=== PATIENT | female | born 1930 | race Caucasian/White ===

== ENCOUNTER 2019-06-04 16:18 | Inpatient (IN) | payer MEDICARE ==
[2019-06-04] MEDS ORDERED: NORMAL SALINE 500 ML IV ONE (16:40)
[2019-06-04 17:09] LABS: ALBUMIN 2.9 g/dL (3.5-5.0); ALKALINE PHOSPHATASE 161 U/L (38-126); ASPARTATE AMINO TRANSFERASE 33 U/L (14-36); BILIRUBIN,DIRECT 0.3 mg/dL (0.0-0.4); BILIRUBIN,TOTAL 0.6 mg/dL (0.2-1.3); BLOOD UREA NITROGEN 42 mg/dL (7-20); CALCIUM 8.9 mg/dL (8.4-10.2); CHLORIDE 93 mmol/L (98-107); GLUCOSE 109 mg/dL (75-110); TOTAL PROTEIN 5.8 g/dL (6.3-8.2)
[2019-06-04 17:10] LABS: HEMATOCRIT 41.7 % (36.0-47.0); HEMOGLOBIN 14.3 g/dL (12.0-15.5); MEAN CORPUSCULAR HEMOGLOBIN 30.9 pg (27.0-33.4); MEAN CORPUSCULAR HGB CONC 34.3 g/dL (32.0-36.0); MEAN CORPUSCULAR VOLUME 90 fl (80-97); PLATELET COUNT 269 10^3/uL (150-450); RED BLOOD COUNT 4.62 10^6/uL (3.72-5.28); RED CELL DISTRIBUTION WIDTH 14.3 % (11.5-14.0); WHITE BLOOD COUNT 11.8 10^3/uL (4.0-10.5)
[2019-06-04 17:14] LABS: INTERNATIONAL RATION (INR) 1.05; PROTHROMBIN TIME 13.8 SEC (11.4-15.4)
[2019-06-04 17:15] LABS: ANION GAP 10 (5-19); CARBON DIOXIDE 39 mmol/L (22-30)
[2019-06-04 17:17] LABS: POTASSIUM 2.8 mmol/L (3.6-5.0)
[2019-06-04 17:25] LABS: VENOUS BLOOD BASE EXCESS 13.4 mmol/L; VENOUS BLOOD HCO3 41.2 mmol/L (20-32); VENOUS BLOOD PCO2 64.4 mmHg (35-63); VENOUS BLOOD PH 7.42 (7.30-7.42)
[2019-06-04 17:30] LABS: ABSOLUTE LYMPHOCYTES# (MANUAL) 0.7 10^3/uL (0.5-4.7); ABSOLUTE MONOCYTES # (MANUAL) 0.7 10^3/uL (0.1-1.4); BASOPHILS % (MANUAL) 0 % (0-2); EOSINOPHILS % (MANUAL) 0 % (0-6); LYMPHOCYTES % (MANUAL) 6 % (13-45); MONOCYTES % (MANUAL) 6 % (3-13); SEGMENTED NEUTROPHILS % (MAN) 88 % (42-78); TOTAL CELLS COUNTED 100
[2019-06-04 17:33] LABS: ANISOCYTOSIS SLIGHT; OVALOCYTES SLIGHT; PLATELET CLUMPS PRESENT; PLATELET COMMENT ADEQUATE; POIKILOCYTOSIS SLIGHT
--- NOTE | 2019-06-04 17:48 | EKG REPORT ---
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 ANTEROSEPTAL INFARCT, OLD : Confirmed by: Rahul Mcgill MD 04-Jun-2019 17:47:55
--- NOTE | 2019-06-04 18:10 | RADIOLOGY REPORT (SQ) ---
EXAM DESCRIPTION: CHEST SINGLE VIEW COMPLETED DATE/TIME: 06/04/2019 5:36 pm REASON FOR STUDY: dyspnea COMPARISON: 05/17/2008 EXAM PARAMETERS: NUMBER OF VIEWS: One view. TECHNIQUE: Single frontal radiographic view of the chest acquired. RADIATION DOSE: NA LIMITATIONS: Lordotic examination. FINDINGS: LUNGS AND PLEURA: Probable small bilateral pleural effusions and associated bibasilar atel ectasis or consolidation. MEDIASTINUM AND HILAR STRUCTURES: No masses. Contour normal. HEART AND VASCULAR STRUCTURES: Heart normal in size. Normal vasculature. BONES: No acute findings. Severe bilateral glenohumeral arthrosis. HARDWARE: None in the chest. OTHER: No other significant finding. IMPRESSION: Lordotic AP portable examination. There are probable small bilateral pleural effusions and associated bibasilar atelectasis or consolidation. TECHNICAL DOCUMENTATION: JOB ID: [id number] [employer]- All Rights Reserved Reading location - IP/workstation name: [email or web address]
--- NOTE | 2019-06-04 18:19 | ER Document Report ---
Entered by ERIC ELDER SCRIBE 06/04/19 1855 Acting as scribe for:VASILE ATKINS IV, MD ED Respiratory Problem - General Information source: Patient, Relative Cannot obtain history due to: Other TRAVEL OUTSIDE OF THE [place] IN LAST 30 DAYS: No - Related Data Home Medications: unobtainable at this time <VASILE ATKINS IV - Last Filed: 06/04/19 19:46> <CESAR MERCER - Last Filed: 06/05/19 03:16> - General Chief Complaint: Breathing Difficulty Stated Complaint: DIFFICULTY BREATHING Time Seen by Provider: 06/04/19 16:31 Primary Care Provider: ELOY CORBIN MD [Primary Care Provider] - Follow up as needed Notes: This 88 year old female patient presents to the emergency department today with complaints of shortness of breath for the last few days. Patient was seen by her primary care doctor 2 days ago for shortness of breath and was told she had "fluid in one lung but not the other". Patient was also started on amoxicillin at that time for "maybe pneumonia" according to family. EMS reports when they arrived on scene the patient had a room air oxygen saturation between 80-82% which mary lou to the high 90s on 4L via nasal cannula. (VASILE ATKINS IV) - Related Data Allergies/Adverse Reactions: No Known Allergies Allergy (Verified 06/05/19 01:37) Past Medical History - General Information source: Patient Cannot obtain history due to: Other - poor historian - Social History Smoking Status: Never Smoker Cigarette use (# per day): No Frequency of alcohol use: None Drug Abuse: None Lives with: Family Family History: Reviewed & Not Pertinent Patient has suicidal ideation: No Patient has homicidal ideation: No <VASILE ATKINS IV - Last Filed: 06/04/19 19:46> Review of Systems - Review of Systems Constitutional: No symptoms reported EENT: No symptoms reported Cardiovascular: No symptoms reported Respiratory: See HPI, Short of breath Gastrointestinal: No symptoms reported Genitourinary: No symptoms reported Female Genitourinary: No symptoms reported Musculoskeletal: No symptoms reported Skin: No symptoms reported Hematologic/Lymphatic: No symptoms reported Neurological/Psychological: No symptoms reported -: Yes All other systems reviewed and negative <VASILE ATKINS IV - Last Filed: 06/04/19 19:46> Physical Exam <VASILE ATKINS IV - Last Filed: 06/04/19 19:46> - Vital signs Vitals: Temp Resp BP Pulse Ox 97.7 F 27 H 171/98 H 98 06/04/19 16:31 06/04/19 16:31 06/04/19 16:31 06/04/19 16:31 - Notes Notes: Physical Exam: General: Alert, appears in mild respiratory distress. HEENT: Normocephalic. Atraumatic. PERRL. Extraocular movements intact. Oropharynx clear. Neck: Supple. Non-tender. Respiratory: Mild respiratory distress, increased work of breathing although lungs do seem to be clear bilaterally. Cardiovascular: Regular rate and rhythm. Abdominal: Normal Inspection. Non-tender. No distension. Normal Bowel Sounds. Back: No gross abnormalities. Extremities: Moves all four extremities. Upper extremities: Normal inspection. Normal ROM. Lower extremities: Normal inspection. No edema. Normal ROM. Neurological: Normal cognition. AAOx4. Normal speech. Psychological: Normal affect. Normal Mood. Skin: Warm. Dry. Normal color. (VASILE ATKINS IV) Course - Laboratory Result Diagrams: 06/04/19 15:43 06/04/19 15:43 - Transfer of Care Care transferred to following provider: DR. MERCER AT 2000 HOURS <VASILE ATKINS IV - Last Filed: 06/04/19 19:46> - Laboratory Result Diagrams: 06/04/19 15:43 06/04/19 15:43 <CESAR MERCER - Last Filed: 06/05/19 03:16> - Re-evaluation Re-evalutation: 06/05/19 03:13 The patient is hypoxic to the low 80s with ambulation. The patient's BNP is nearly 3000 and it is not clear if this is new or not. Will therefore admit for further work up and treatment of her hypoxia and presumed new onset CHF Patient's K was low and this was supped. 06/05/19 03:13 (CESAR MERCER) - Vital Signs Vital signs: Temp Pulse Resp BP Pulse Ox 97.5 F 83 27 H 146/80 H 96 06/04/19 21:55 06/04/19 21:55 06/05/19 01:01 06/05/19 01:00 06/05/19 01:01 - Laboratory Laboratory results interpreted by me: 06/04/19 06/04/19 06/04/19 15:43 15:43 16:45 WBC 11.8 H RDW 14.3 H Seg Neuts % (Manual) 88 H Lymphocytes % (Manual) 6 L Abs Neuts (Manual) 10.4 H Carbonic Acid ABG pCO2 ABG HCO3 ABG Total CO2 VBG pCO2 VBG HCO3 Potassium 2.8 L* Chloride 93 L Carbon Dioxide 39 H BUN 42 H Magnesium Alkaline Phosphatase 161 H Ammonia NT-Pro-B Natriuret Pep Total Protein 5.8 L Albumin 2.9 L Urine Protein >=500 H 06/04/19 06/04/19 06/04/19 17:05 22:07 22:07 WBC RDW Seg Neuts % (Manual) Lymphocytes % (Manual) Abs Neuts (Manual) Carbonic Acid ABG pCO2 ABG HCO3 ABG Total CO2 VBG pCO2 64.4 H VBG HCO3 41.2 H Potassium Chloride Carbon Dioxide BUN Magnesium Alkaline Phosphatase Ammonia 36.1 H NT-Pro-B Natriuret Pep 2950 H Total Protein Albumin Urine Protein 06/04/19 06/04/19 22:07 23:10 WBC RDW Seg Neuts % (Manual) Lymphocytes % (Manual) Abs Neuts (Manual) Carbonic Acid 1.77 H ABG pCO2 58.9 H ABG HCO3 40.1 H ABG Total CO2 41.9 H VBG pCO2 VBG HCO3 Potassium Chloride Carbon Dioxide BUN Magnesium 2.4 H Alkaline Phosphatase Ammonia NT-Pro-B Natriuret Pep Total Protein Albumin Urine Protein - EKG Interpretation by Me Additional EKG results interpreted by me: 06/04/19 19:49 EKG performed on 06/04/2019 at 1634 hrs. was interpreted by this MD. Findings: Normal sinus rhythm, rate 73, P waves preceding QRS complexes, QRS complexes appear narrow, there are no obvious patterns of ST elevation or depression suggestive of acute myocardial ischemia or infarction. (VASILE ATKINS IV) Discharge <VASILE ATKINS IV - Last Filed: 06/04/19 19:46> - Discharge Admitting Provider: Adonis (Hospitalist) Unit Admitted: Telemetry <CESAR MERCER - Last Filed: 06/05/19 03:16> - Discharge Clinical Impression: Hypokalemia, Hypoxemia Dyspnea Qualifiers: Dyspnea type: unspecified Qualified Code(s): R06.00 - Dyspnea, unspecified Heart failure Qualifiers: Heart failure type: unspecified Heart failure chronicity: unspecified Qualified Code(s): I50.9 - Heart failure, unspecified Condition: Fair Disposition: ADMITTED OBSERVATION Referrals: ELOY CORBIN MD [Primary Care Provider] - Follow up as needed I personally performed the services described in the documentation, reviewed and edited the documentation which was dictated to the scribe in my presence, and it accurately records my words and actions.
[2019-06-04 18:28] LABS: A TYPE INFLUENZA AG NEGATIVE (NEGATIVE); B INFLUENZA AG NEGATIVE (NEGATIVE)
[2019-06-04] MEDS ORDERED: POTASSIUM CHLORIDE 10 MEQ TABLET.ER PO ONE (18:46)
[2019-06-04 19:07] LABS: APPEARANCE,URINE SLIGHTLY-CLOUDY; BILIRUBIN,URINE NEGATIVE (NEGATIVE); COLOR,URINE YELLOW; GLUCOSE, URINE NEGATIVE (NEGATIVE); KETONES,URINE NEGATIVE (NEGATIVE); PROTEIN,URINE >=500 mg/dL (NEGATIVE); URINE SPECIFIC GRAVITY 1.028; UROBILINOGEN,URINE NEGATIVE mg/dL (<2.0)
[2019-06-04] MEDS ORDERED: POTASSI CL 20 MEQ/50 ML RIDER 20 MEQ/50 ML RTUPB IV ONE (19:46)
[2019-06-04 20:18] LABS: A TYPE INFLUENZA AG NEGATIVE (NEGATIVE); B INFLUENZA AG NEGATIVE (NEGATIVE)
--- NOTE | 2019-06-04 22:20 | RADIOLOGY REPORT (SQ) ---
CT angiogram chest with contrast on 06/04/2019 at 9:43 PM CLINICAL INDICATION: Shortness of breath TECHNIQUE: Multiple axial images are obtained throughout the chest following the administration of IV contrast. Computer generated 3D reconstructions/MIPS were performed. This exam was performed according to our departmental dose-optimization program, which includes automated exposure control, adjustment of the mA and/or kV according to patient size and/or use of iterative reconstruction technique. Total DLP is 610.99 mGy*cm. COMPARISON: None FINDINGS: There is no thoracic aortic aneurysm or dissection. Unfortunately bolus timing is significantly suboptimal for evaluation of pulmonary embolus. No definite evidence of a large or central pulmonary embolus is noted. Otherwise cannot exclude pulmonary emboli on this exam. There is no pleural or pericardial effusion. Limited visualized upper abdomen is unremarkable. There is no thoracic adenopathy. There is minimal bilateral dependent and basilar atelectasis. The lungs are otherwise clear. Degenerative changes are noted in the spine. IMPRESSION: 1. Unfortunately bolus timing significantly limits evaluation for pulmonary embolus. No evidence of a definite large or central pulmonary embolus is noted but otherwise cannot exclude pulmonary emboli on this exam. 2. Otherwise no acute abnormality.
--- NOTE | 2019-06-04 22:39 | RADIOLOGY REPORT (SQ) ---
EXAM DESCRIPTION: Noncontrast CT head CLINICAL HISTORY: 88 years Female AMS TECHNIQUE: Noncontrast CT head. All CT scans at this facility use dose modulation, iterative reconstruction, and/or weight based dosing when appropriate to reduce radiation dose to as low as reasonably achievable. COMPARISON: None. FINDINGS: Examination is technically limited by suboptimal patient positioning. There is questionable hypodensity versus artifact within the right frontal white matter. Pepper matter, white matter, ventricles, and cisterns are otherwise within normal limits. No acute hemorrhage or mass effect. Visualized portions of paranasal sinuses demonstrate mild scattered mucosal disease. The mastoids are clear. Visualized portions of the calvarium are within normal limits. IMPRESSION: 1. No acute intracranial hemorrhage. Questionable hypodensity versus artifact within the right frontal white matter. If there is clinical concern for acute stroke, consider MRI brain as a more sensitive evaluation.
[2019-06-04 23:17] LABS: ARTERIAL BLOOD BASE EXCESS 13.4 mmol/L; ARTERIAL BLOOD H2CO3 1.77 mmol/L (1.05-1.35); ARTERIAL BLOOD HCO3 40.1 mmol/L (20-24); ARTERIAL BLOOD O2 SATURATION 97.1 % (94-98); ARTERIAL BLOOD PCO2 58.9 mmHg (35-45); ARTERIAL BLOOD PH 7.45 (7.35-7.45); ARTERIAL BLOOD PO2 91.4 mmHg (80-100); ARTERIAL BLOOD TOTAL CO2 41.9 mmol/L (21-25)
[2019-06-04 23:18] LABS: ARTERIAL BLOOD FIO2 2L
--- NOTE | 2019-06-05 | RADIOLOGY REPORT (SQ) ---
CT head without contrast on 06/04/2019 11:34 PM CLINICAL INDICATION: Altered mental status TECHNIQUE: Multiple axial images are obtained throughout the head without the administration of contrast. This exam was performed according to our departmental dose-optimization program, which includes automated exposure control, adjustment of the mA and/or kV according to patient size and/or use of iterative reconstruction technique. Total DLP is 805.55 mGy*cm. COMPARISON: 06/04/2019 at 9:40 PM FINDINGS: There is generalized cerebral atrophy. There is low density in the periventricular white matter consistent with chronic small vessel ischemic changes. Previously commented on low-density in the right frontal region is consistent with artifact on the previous exam. There is no hydrocephalus. There is no hemorrhage. There are no abnormal extra-axial fluid collections. There is no mass, mass effect or midline shift. There is no CT evidence of acute infarct. No bony abnormality is noted. Mucous retention cyst is noted in the left maxillary sinus. IMPRESSION: Atrophy and chronic small vessel ischemic changes with no acute intracranial abnormality.
--- NOTE | 2019-06-05 00:25 | RADIOLOGY REPORT (SQ) ---
EXAM DESCRIPTION: CT CHEST ANGIOGRAPHY WITHOUT THEN WITH IV CONTRAST COMPLETED DATE/TME: 06/04/2019 23:30 CLINICAL HISTORY: 88 years Female, DYSPNEA Comparison: CR, same day. Technique: IV contrast. Coronal and sagittal reformat. 3d reconstruction. This exam was performed according to our departmental dose-optimization program, which includes automated exposure control, adjustment of the mA and/or kV according to patient size and/or use of iterative reconstruction technique.[facility]: Dose Right [facility]: CareDose [facility]: Dose Right [facility]: Teradose 4D [facility]: Rachio LIMITATIONS: None Findings: No pulmonary embolus. No right ventricular strain. Small bilateral lower lobar dependent consolidative opacity. Small bilateral pleural effusion. Emphysematous hyperinflation. Mild scattered reticulonodular opacity including a 0.8 cm left pulmonary nodule, image 30 of series 4. Moderate fluid dilated esophagus. Moderate hiatal hernia. Cholecystectomy. Moderate T11 anterior vertebral compression deformity. Degenerative vacuum disc disease. Likely benign renal cyst(s), not definitively characterized. Advanced coronary arterial calcification/stent. Atherosclerotic vascular disease. Old granulomatous disease. Inferior neck, axillae, mediastinum, airway, lymphatics, heart, vasculature, upper abdomen, and musculoskeleton appear otherwise unremarkable. Impression: 1. Mild mixed interstitial and airpace opacities could small bibasilar consolidate, 0.8 cm left pulmonary nodule, and small pleural effusions.. Differential diagnosis includes pulmonary edema, multifocal pneumonia, and chronic interstitial lung disease. No pulmonary embolus. 2. Moderate T11 anterior vertebral compression deformity. 3. Moderate esophageal dilation may indicate reflux or dystonia. Moderate hiatal hernia. Consider fluoroscopic upper GI.
[2019-06-05] MEDS ORDERED: FUROSEMIDE INJ/PF 20 MG/2 ML SDV IV ONE (01:11)
[2019-06-05] MEDS ORDERED: MAG HYDROX/AL HYDROX/SIMETH SUSP 30 ML UDCUP PO PRN (02:22)
[2019-06-05] MEDS ORDERED: MAGNESIUM HYDROXIDE SUSP 30 ML UDCUP PO PRN (02:22)
[2019-06-05] MEDS ORDERED: ACETAMINOPHEN 325 MG TABLET PO PRN (02:22)
[2019-06-05 05:34] LABS: BLOOD UREA NITROGEN 34 mg/dL (7-20); CALCIUM 8.6 mg/dL (8.4-10.2); CHLORIDE 94 mmol/L (98-107); GLUCOSE 110 mg/dL (75-110)
[2019-06-05 05:41] LABS: ANION GAP 8 (5-19); CARBON DIOXIDE 39 mmol/L (22-30)
[2019-06-05 05:46] LABS: POTASSIUM 2.8 mmol/L (3.6-5.0)
[2019-06-05] MEDS ORDERED: ENALAPRILAT DIHYDRATE INJ/PF 1.25 MG/1 ML SDV IV ONE (06:08)
--- NOTE | 2019-06-05 06:17 | PDOC H&P ---
History of Present Illness Admission Date/PCP: 06/05/19 03:59 ELOY CORBIN MD Patient complains of: Shortness of breath and nonproductive cough History of Present Illness: REYES BERRY is a 88 year old female with a past medical history of hypertension, GERD, hypothyroidism. She presents with 2 weeks of shortness of breath and a nonproductive cough seeking evaluation at urgent care she is diagnosed with bronchitis and placed on amoxicillin. Without improvement she seeks evaluation in the emergency department which again she is diagnosed with bronchitis and treated with antibiotics, steroids, IV fluids and albuterol with Atrovent. Symptoms are unimproved and she is referred to the hospitalist for admission. She is tachypneic and hypertensive with a blood pressure of 200/90, Potassium of 2.8 and BNP of greater than 3000. Chest x-ray reveals pulmonary vascular congestion and small bilateral pleural effusions. Potassium, Lasix, Vasotec and hydralazine are ordered. Patient herself is a poor historian and unable to provide history Past Medical History Cardiac Medical History: Reports: Hyperlipidema, Hypertension Denies: Congestive Heart Failure GI Medical History: Reports: Gastroesophageal Reflux Disease Social History Information Source: [facility] Records Lives with: Family Smoking Status: Never Smoker Drugs: None - Advance Directive Resuscitation Status: Full Code Family History Family History: COPD Parental Family History Reviewed: No - Unavailable Children Family History Reviewed: No - Unknown Sibling(s) Family History Reviewed.: No - Unknown Medication/Allergy Home Medications: Amoxicillin/Potassium Clav [Amox-Clav 875-125 mg Tablet] 1 each PO BID 06/05/19 Ascorbate Calcium [Vitamin C] 500 mg PO DAILY 06/05/19 Atenolol [Tenormin 50 mg Tablet] 50 mg PO BID 06/05/19 Benzonatate [Tessalon Perles 100 mg Capsule] 1 cap PO TID 06/05/19 Cyanocobalamin (Vitamin B-12) [B-12] 2,500 mcg PO QHS 06/05/19 Famotidine [Pepcid 20 mg Tablet] 20 mg PO QPM 06/05/19 Hydrochlorothiazide [Hydrodiuril 25 mg Tablet] 12.5 mg PO QAM 06/05/19 Levothyroxine Sodium 0.112 mcg PO AC 06/05/19 Multivit-Min/Iron/Folic/Lutein [Centrum Silver Women Tablet] 1 each PO QAM 06/05/19 Omeprazole 40 mg PO BID 06/05/19 Pravastatin Sodium 20 mg PO QPM 06/05/19 Allergies/Adverse Reactions: No Known Allergies Allergy (Verified 06/05/19 01:37) Review of Systems ROS unobtainable: Due to mental status Physical Exam Vital Signs: Temp Pulse Resp BP Pulse Ox 97.6 F 20 199/88 H 98 06/05/19 03:00 06/05/19 04:01 06/05/19 04:01 06/05/19 04:01 Intake & Output 06/03/19 06/04/19 06/05/19 11:59 11:59 11:59 Intake Total 550 Balance 550 Weight 41.3 kg General appearance: PRESENT: cooperative, thin, well-developed, well-nourished, other - Chronically ill-appearing with temporal wasting and cachexia Head exam: PRESENT: atraumatic, normocephalic Eye exam: PRESENT: conjunctiva pink, EOMI, PERRLA. ABSENT: scleral icterus Ear exam: PRESENT: normal external ear exam Mouth exam: PRESENT: moist, tongue midline Neck exam: ABSENT: carotid bruit, JVD, lymphadenopathy, thyromegaly Respiratory exam: PRESENT: accessory muscle use, crackles, decreased breath sounds, symmetrical, tachypnea. ABSENT: rhonchi Cardiovascular exam: PRESENT: gallop, RRR. ABSENT: diastolic murmur, rubs, systolic murmur Pulses: PRESENT: normal dorsalis pedis pul Vascular exam: PRESENT: normal capillary refill GI/Abdominal exam: PRESENT: normal bowel sounds, soft. ABSENT: distended, guarding, mass, organolmegaly, rebound, tenderness Rectal exam: PRESENT: deferred Extremities exam: PRESENT: full ROM, +1 edema. ABSENT: calf tenderness, clubbing, pedal edema Neurological exam: PRESENT: alert, awake, oriented to person, oriented to place, oriented to time, oriented to situation, CN II-XII grossly intact. ABSENT: motor sensory deficit Psychiatric exam: PRESENT: appropriate affect, normal mood. ABSENT: homicidal ideation, suicidal ideation Skin exam: PRESENT: dry, intact, warm. ABSENT: cyanosis, rash Results Laboratory Results: 06/04/19 15:43 06/05/19 04:52 06/04/19 06/04/19 06/04/19 15:43 15:43 16:45 WBC 11.8 H RBC 4.62 Hgb 14.3 Hct 41.7 MCV 90 MCH 30.9 MCHC 34.3 RDW 14.3 H Plt Count 269 Seg Neutrophils % Not Reportable Carbonic Acid HCO3/H2CO3 Ratio ABG pH ABG pCO2 ABG pO2 ABG HCO3 ABG O2 Saturation ABG Base Excess VBG pH VBG pCO2 VBG HCO3 VBG Base Excess FiO2 Sodium 141.8 Potassium 2.8 L* Chloride 93 L Carbon Dioxide 39 H Anion Gap 10 BUN 42 H Creatinine 0.67 Est GFR ( Amer) > 60 Glucose 109 Lactic Acid Calcium 8.9 Magnesium Total Bilirubin 0.6 AST 33 Alkaline Phosphatase 161 H Ammonia Total Protein 5.8 L Albumin 2.9 L TSH Urine Color YELLOW Urine Appearance SLIGHTLY-CLOUDY Urine pH 6.0 Ur Specific [place] 1.028 Urine Protein >=500 H Urine Glucose (UA) NEGATIVE Urine Ketones NEGATIVE Urine Blood NEGATIVE Urine RBC (Auto) 9 06/04/19 06/04/19 06/04/19 17:05 17:05 22:07 WBC RBC Hgb Hct MCV MCH MCHC RDW Plt Count Seg Neutrophils % Carbonic Acid HCO3/H2CO3 Ratio ABG pH ABG pCO2 ABG pO2 ABG HCO3 ABG O2 Saturation ABG Base Excess VBG pH 7.42 VBG pCO2 64.4 H VBG HCO3 41.2 H VBG Base Excess 13.4 FiO2 Sodium Potassium Chloride Carbon Dioxide Anion Gap BUN Creatinine Est GFR ( Amer) Glucose Lactic Acid 1.2 Calcium Magnesium Total Bilirubin AST Alkaline Phosphatase Ammonia 36.1 H Total Protein Albumin TSH Urine Color Urine Appearance Urine pH Ur Specific [place] Urine Protein Urine Glucose (UA) Urine Ketones Urine Blood Urine RBC (Auto) 06/04/19 06/04/19 06/04/19 22:07 22:07 23:10 WBC RBC Hgb Hct MCV MCH MCHC RDW Plt Count Seg Neutrophils % Carbonic Acid 1.77 H HCO3/H2CO3 Ratio 22:1 ABG pH 7.45 ABG pCO2 58.9 H ABG pO2 91.4 ABG HCO3 40.1 H ABG O2 Saturation 97.1 ABG Base Excess 13.4 VBG pH VBG pCO2 VBG HCO3 VBG Base Excess FiO2 2L Sodium Potassium Chloride Carbon Dioxide Anion Gap BUN Creatinine Est GFR ( Amer) Glucose Lactic Acid Calcium Magnesium 2.4 H Total Bilirubin AST Alkaline Phosphatase Ammonia Total Protein Albumin TSH 0.40 L Urine Color Urine Appearance Urine pH Ur Specific [place] Urine Protein Urine Glucose (UA) Urine Ketones Urine Blood Urine RBC (Auto) 06/05/19 04:52 WBC RBC Hgb Hct MCV MCH MCHC RDW Plt Count Seg Neutrophils % Carbonic Acid HCO3/H2CO3 Ratio ABG pH ABG pCO2 ABG pO2 ABG HCO3 ABG O2 Saturation ABG Base Excess VBG pH VBG pCO2 VBG HCO3 VBG Base Excess FiO2 Sodium 140.9 Potassium 2.8 L* Chloride 94 L Carbon Dioxide 39 H Anion Gap 8 BUN 34 H Creatinine 0.61 Est GFR ( Amer) > 60 Glucose 110 Lactic Acid Calcium 8.6 Magnesium Total Bilirubin AST Alkaline Phosphatase Ammonia Total Protein Albumin TSH Urine Color Urine Appearance Urine pH Ur Specific [place] Urine Protein Urine Glucose (UA) Urine Ketones Urine Blood Urine RBC (Auto) 06/04/19 06/04/19 06/04/19 15:43 22:07 22:07 Troponin I 0.030 0.021 NT-Pro-B Natriuret Pep 2950 H 06/05/19 04:52 Troponin I 0.023 NT-Pro-B Natriuret Pep Impressions: Chest X-Ray 06/04/19 16:41 IMPRESSION: Lordotic AP portable examination. There are probable small bilateral pleural effusions and associated bibasilar atelectasis or consolidation. Head CT 06/04/19 23:30 IMPRESSION: Atrophy and chronic small vessel ischemic changes with no acute intracranial abnormality. Assessment and Plan - Diagnosis (1) Hypertensive urgency Is this a current diagnosis for this admission?: Yes Plan: Vasotec, hydralazine, Lasix initiated (2) Heart failure Qualifiers: Heart failure type: unspecified Heart failure chronicity: unspecified Qualified Code(s): I50.9 - Heart failure, unspecified Is this a current diagnosis for this admission?: Yes Plan: Unclear history, follow-up 2D echo, F care set deployed, (3) Hypokalemia Is this a current diagnosis for this admission?: Yes Plan: Likely secondary to hydrochlorothiazide, repleted, follow-up magnesium, and chemistry - Time Time Spent with patient: 25-34 minutes - Inpatient Certification Medical Necessity: Need Close Monitoring Due to Risk of Patient Decompensation
[2019-06-05] MEDS: HEPARIN SOD (PORCINE) 5,000 UNIT/ML 1 ML VIAL SUBCUT SCH ×3 (07:17→22:30)
[2019-06-05] MEDS ORDERED: LEVOTHYROXINE SODIUM 0.112 MG TABLET PO SCH (08:00)
--- NOTE | 2019-06-05 08:35 | PDOC PROGRESS REPORT ---
Subjective Progress Note for:: 06/05/19 Subjective:: 88 year old female with a past medical history of hypertension, GERD, hypothyroidism. She presents with 2 weeks of shortness of breath and a nonproductive cough seeking evaluation at urgent care she is diagnosed with bronchitis and placed on amoxicillin. Without improvement she seeks evaluation in the emergency department which again she is diagnosed with bronchitis and treated with antibiotics, steroids, IV fluids and albuterol with Atrovent. Symptoms are unimproved and she is referred to the hospitalist for admission. She is tachypneic and hypertensive with a blood pressure of 200/90, Potassium of 2.8 and BNP of greater than 3000. Chest x-ray reveals pulmonary vascular congestion and small bilateral pleural effusions. Potassium, Lasix, Vasotec and hydralazine are ordered. Patient herself is a poor historian and unable to provide history 06/05/[id number]-ybwi-old male with history of hypertension, hypothyroidism, gastroparesis reflux disease brought in by family members with complaints of increasing shortness of breath. She was started on Augmentin few days ago for presumed bronchitis. Patient never had a history of congestive heart failure as per the family. BNP was elevated at the time of admission and CT chest indicates bilateral pulmonary edema with possible infiltrates. Patient is comfortably in the bed nodding her head responding appropriately to the verbal commands. Most of the history is provided by the son at bedside. He wants her to be a full code. It is presently on IV Lasix, potassium supplementation and IV hydralazine for elevated blood pressures. Echocardiogram report is pending. Reason For Visit: HEART FAILURE Physical Exam Vital Signs: Temp Pulse Resp BP Pulse Ox 97.6 F 18 153/84 H 97 06/05/19 03:00 06/05/19 07:01 06/05/19 07:01 06/05/19 07:01 Intake & Output 06/04/19 06/05/19 06/06/19 06:59 06:59 06:59 Intake Total 550 Balance 550 Weight 41.3 kg General appearance: PRESENT: no acute distress, thin Head exam: PRESENT: atraumatic Eye exam: PRESENT: PERRLA Mouth exam: PRESENT: moist, tongue midline Teeth exam: PRESENT: poor dentation Neck exam: ABSENT: carotid bruit, JVD, lymphadenopathy, thyromegaly Respiratory exam: PRESENT: crackles, decreased breath sounds Cardiovascular exam: PRESENT: bradycardia Vascular exam: PRESENT: normal capillary refill GI/Abdominal exam: PRESENT: normal bowel sounds, soft. ABSENT: distended, guarding, mass, organolmegaly, rebound, tenderness Rectal exam: PRESENT: deferred Extremities exam: PRESENT: full ROM. ABSENT: calf tenderness, clubbing, pedal edema Neurological exam: PRESENT: alert, awake, CN II-XII grossly intact Psychiatric exam: PRESENT: appropriate affect, normal mood. ABSENT: homicidal ideation, suicidal ideation Results Laboratory Results: 06/04/19 15:43 06/05/19 04:52 06/04/19 06/04/19 06/04/19 15:43 15:43 16:45 WBC 11.8 H RBC 4.62 Hgb 14.3 Hct 41.7 MCV 90 MCH 30.9 MCHC 34.3 RDW 14.3 H Plt Count 269 Seg Neutrophils % Not Reportable Carbonic Acid HCO3/H2CO3 Ratio ABG pH ABG pCO2 ABG pO2 ABG HCO3 ABG O2 Saturation ABG Base Excess VBG pH VBG pCO2 VBG HCO3 VBG Base Excess FiO2 Sodium 141.8 Potassium 2.8 L* Chloride 93 L Carbon Dioxide 39 H Anion Gap 10 BUN 42 H Creatinine 0.67 Est GFR ( Amer) > 60 Glucose 109 Lactic Acid Calcium 8.9 Magnesium Total Bilirubin 0.6 AST 33 Alkaline Phosphatase 161 H Ammonia Total Protein 5.8 L Albumin 2.9 L TSH Urine Color YELLOW Urine Appearance SLIGHTLY-CLOUDY Urine pH 6.0 Ur Specific [place] 1.028 Urine Protein >=500 H Urine Glucose (UA) NEGATIVE Urine Ketones NEGATIVE Urine Blood NEGATIVE Urine RBC (Auto) 9 06/04/19 06/04/19 06/04/19 17:05 17:05 22:07 WBC RBC Hgb Hct MCV MCH MCHC RDW Plt Count Seg Neutrophils % Carbonic Acid HCO3/H2CO3 Ratio ABG pH ABG pCO2 ABG pO2 ABG HCO3 ABG O2 Saturation ABG Base Excess VBG pH 7.42 VBG pCO2 64.4 H VBG HCO3 41.2 H VBG Base Excess 13.4 FiO2 Sodium Potassium Chloride Carbon Dioxide Anion Gap BUN Creatinine Est GFR ( Amer) Glucose Lactic Acid 1.2 Calcium Magnesium Total Bilirubin AST Alkaline Phosphatase Ammonia 36.1 H Total Protein Albumin TSH Urine Color Urine Appearance Urine pH Ur Specific [place] Urine Protein Urine Glucose (UA) Urine Ketones Urine Blood Urine RBC (Auto) 06/04/19 06/04/19 06/04/19 22:07 22:07 23:10 WBC RBC Hgb Hct MCV MCH MCHC RDW Plt Count Seg Neutrophils % Carbonic Acid 1.77 H HCO3/H2CO3 Ratio 22:1 ABG pH 7.45 ABG pCO2 58.9 H ABG pO2 91.4 ABG HCO3 40.1 H ABG O2 Saturation 97.1 ABG Base Excess 13.4 VBG pH VBG pCO2 VBG HCO3 VBG Base Excess FiO2 2L Sodium Potassium Chloride Carbon Dioxide Anion Gap BUN Creatinine Est GFR ( Amer) Glucose Lactic Acid Calcium Magnesium 2.4 H Total Bilirubin AST Alkaline Phosphatase Ammonia Total Protein Albumin TSH 0.40 L Urine Color Urine Appearance Urine pH Ur Specific [place] Urine Protein Urine Glucose (UA) Urine Ketones Urine Blood Urine RBC (Auto) 06/05/19 04:52 WBC RBC Hgb Hct MCV MCH MCHC RDW Plt Count Seg Neutrophils % Carbonic Acid HCO3/H2CO3 Ratio ABG pH ABG pCO2 ABG pO2 ABG HCO3 ABG O2 Saturation ABG Base Excess VBG pH VBG pCO2 VBG HCO3 VBG Base Excess FiO2 Sodium 140.9 Potassium 2.8 L* Chloride 94 L Carbon Dioxide 39 H Anion Gap 8 BUN 34 H Creatinine 0.61 Est GFR ( Amer) > 60 Glucose 110 Lactic Acid Calcium 8.6 Magnesium Total Bilirubin AST Alkaline Phosphatase Ammonia Total Protein Albumin TSH Urine Color Urine Appearance Urine pH Ur Specific [place] Urine Protein Urine Glucose (UA) Urine Ketones Urine Blood Urine RBC (Auto) 06/04/19 06/04/19 06/04/19 15:43 22:07 22:07 Troponin I 0.030 0.021 NT-Pro-B Natriuret Pep 2950 H 06/05/19 04:52 Troponin I 0.023 NT-Pro-B Natriuret Pep Impressions: Chest X-Ray 06/04/19 16:41 IMPRESSION: Lordotic AP portable examination. There are probable small bilateral pleural effusions and associated bibasilar atelectasis or conso lidation. Head CT 06/04/19 23:30 IMPRESSION: Atrophy and chronic small vessel ischemic changes with no acute intracranial abnormality. Assessment and Plan - Diagnosis (1) Hypertensive urgency Is this a current diagnosis for this admission?: Yes Plan: Vasotec, hydralazine, Lasix initiated 06/05/2019 patient is presently on IV hydralazine as needed, Lasix 20 mg IV daily and enalapril milligrams daily. Latest blood pressure is 155/78 improved compared to the admission blood pressures. Continues on hydrochlorothiazide at home plan is to resume hydrochlorothiazide and start potassium supplementations from today. hyper Tensive urgency is resolving. (2) Heart failure Qualifiers: Heart failure type: unspecified Heart failure chronicity: unspecified Qualified Code(s): I50.9 - Heart failure, unspecified Is this a current diagnosis for this admission?: No Plan: Unclear history, follow-up 2D echo, F care set deployed, 06/05/2019-patient admitted with elevated BNP, CT scan suggestive of bilateral pulmonary edema and uncontrolled hypertension. Most likely patient has chronic systolic heart failure. Echo report is pending. Presently on Lasix 20 mg IV daily and to closely monitor for fluid overload and to repeat the chest x-ray tomorrow. (3) Hypokalemia Is this a current diagnosis for this admission?: Yes Plan: Likely secondary to hydrochlorothiazide, repleted, follow-up magnesium, and chemistry 06/05/2019-patient came in with serum potassium of 2.8 getting potassium supplementations may be secondary to hydrochlorothiazide started on 40 mg of potassium supplementation on daily basis and restarted on hydrochlorothiazide from today. plan is to check the labs on daily basis. (4) Hypoxemia Is this a current diagnosis for this admission?: Yes Plan: 06/05/2019 patient came in with hypoxia and complaints of shortness of breath most likely secondary to possible underlying heart failure/pneumonia. Patient receiving IV Lasix 20 mg daily and started on IV Rocephin 1 g daily for questionable pneumonia suggested on CT chest. (5) Pneumonia Is this a current diagnosis for this admission?: Yes Plan: 06/05/2019-CT scan suggestive of possibility of consolidated pneumonia WBC count is 11,800 came in with shortness of breath but no fevers. Started on IV Rocephin 1 g daily. To request for the blood cultures and sputum cultures. May be patient has occult community-acquired pneumonia. Influenza A and B neg. (6) Protein-energy malnutrition Is this a current diagnosis for this admission?: Yes Plan: 06/05/2019-patient BMI is less than 19. Dietary consult be requested and to start her on Ensure 3 times daily.
[2019-06-05] MEDS ORDERED: POTASSIUM CHLORIDE 10 MEQ TABLET.ER PO SCH (10:00)
[2019-06-05] MEDS ORDERED: (PENDING PHARMACY ID) (Ascorbate Calcium [Vitamin C] 500 MG) PO SCH (10:00)
[2019-06-05] MEDS: FUROSEMIDE INJ/PF 20 MG/2 ML SDV IV SCH (10:56)
[2019-06-05] MEDS: CEFTRIAXONE 1 GM/D5W RTU 1 GM/50 ML RTUPB IV SCH (10:57)
[2019-06-05] MEDS: ATENOLOL 50 MG TABLET PO SCH ×2 (10:59→18:06)
[2019-06-05] MEDS: ENALAPRIL MALEATE 5 MG TABLET PO SCH (10:59)
[2019-06-05] MEDS: ASPIRIN 81 MG TABLET, ENT COATED PO SCH (10:59)
[2019-06-05] MEDS: HYDROCHLOROTHIAZIDE 12.5 MG TABLET PO SCH (13:15)
[2019-06-05] MEDS: BENZONATATE 100 MG CAPSULE PO SCH ×2 (14:15→18:06)
[2019-06-05] MEDS ORDERED: (PENDING PHARMACY ID) (Pravastatin Sodium [Pravastatin Sodium] 20 MG) PO SCH (18:00)
[2019-06-05] MEDS: PANTOPRAZOLE SODIUM 40 MG TABLET.DR PO SCH (18:06)
[2019-06-05] MEDS: FAMOTIDINE 20 MG TABLET PO SCH (18:06)
[2019-06-05] MEDS: ATORVASTATIN CALCIUM 10 MG TABLET PO SCH (22:30)
[2019-06-05] MEDS: CYANOCOBALAMIN (VITAMIN B-12) 1,000 MCG TABLET PO SCH (22:30)
[2019-06-06 05:12] LABS: HEMATOCRIT 40.6 % (36.0-47.0); HEMOGLOBIN 13.8 g/dL (12.0-15.5); MEAN CORPUSCULAR HEMOGLOBIN 30.7 pg (27.0-33.4); MEAN CORPUSCULAR VOLUME 90 fl (80-97); PLATELET COUNT 210 10^3/uL (150-450); RED BLOOD COUNT 4.51 10^6/uL (3.72-5.28); RED CELL DISTRIBUTION WIDTH 14.1 % (11.5-14.0); WHITE BLOOD COUNT 11.6 10^3/uL (4.0-10.5)
[2019-06-06 05:33] LABS: BLOOD UREA NITROGEN 31 mg/dL (7-20); CALCIUM 8.4 mg/dL (8.4-10.2); GLUCOSE 124 mg/dL (75-110); POTASSIUM 3.1 mmol/L (3.6-5.0)
[2019-06-06 05:36] LABS: ABSOLUTE LYMPHOCYTES# (MANUAL) 0.6 10^3/uL (0.5-4.7); ABSOLUTE MONOCYTES # (MANUAL) 0.3 10^3/uL (0.1-1.4); BASOPHILS % (MANUAL) 0 % (0-2); EOSINOPHILS % (MANUAL) 2 % (0-6); LYMPHOCYTES % (MANUAL) 5 % (13-45); MONOCYTES % (MANUAL) 3 % (3-13); SEGMENTED NEUTROPHILS % (MAN) 90 % (42-78); TOTAL CELLS COUNTED 100
[2019-06-06 05:39] LABS: ANISOCYTOSIS SLIGHT; OVALOCYTES 1+; PLATELET COMMENT ADEQUATE; POIKILOCYTOSIS SLIGHT; TEAR DROP CELLS SLIGHT; TOXIC GRANULATION 1+
[2019-06-06 06:09] LABS: CHLORIDE 94 mmol/L (98-107)
[2019-06-06 06:14] LABS: ANION GAP 2 (5-19)
[2019-06-06 06:17] LABS: CARBON DIOXIDE 44 mmol/L (22-30)
[2019-06-06] MEDS: HEPARIN SOD (PORCINE) 5,000 UNIT/ML 1 ML VIAL SUBCUT SCH ×3 (06:44→22:22)
[2019-06-06] MEDS: LEVOTHYROXINE SODIUM 0.112 MG TABLET PO SCH (06:44)
[2019-06-06] MEDS ORDERED: (PENDING PHARMACY ID) (Multivit-Min/Iron/Folic/Lutein [Centrum Silver Women Tablet] 1 EACH PO SCH (08:00)
[2019-06-06] MEDS ORDERED: HYDROCHLOROTHIAZIDE 25 MG TABLET PO SCH (08:00)
[2019-06-06] MEDS ORDERED: POTASSIUM CHLORIDE 10 MEQ TABLET.ER PO ONE (08:30)
[2019-06-06] MEDS: PANTOPRAZOLE SODIUM 40 MG TABLET.DR PO SCH ×2 (08:45→18:23)
[2019-06-06] MEDS: MULTIVITAMIN TABLET PO SCH (08:45)
[2019-06-06] MEDS: HYDROCHLOROTHIAZIDE 12.5 MG TABLET PO SCH (08:45)
[2019-06-06] MEDS: FUROSEMIDE INJ/PF 20 MG/2 ML SDV IV SCH (10:00)
--- NOTE | 2019-06-06 10:15 | PDOC PROGRESS REPORT ---
Subjective Progress Note for:: 06/06/19 Subjective:: 88 year old female with a past medical history of hypertension, GERD, hypothyroidism. She presents with 2 weeks of shortness of breath and a nonproductive cough seeking evaluation at urgent care she is diagnosed with bronchitis and placed on amoxicillin. Without improvement she seeks evaluation in the emergency department which again she is diagnosed with bronchitis and treated with antibiotics, steroids, IV fluids and albuterol with Atrovent. Symptoms are unimproved and she is referred to the hospitalist for admission. She is tachypneic and hypertensive with a blood pressure of 200/90, Potassium of 2.8 and BNP of greater than 3000. Chest x-ray reveals pulmonary vascular congestion and small bilateral pleural effusions. Potassium, Lasix, Vasotec and hydralazine are ordered. Patient herself is a poor historian and unable to provide history 06[id number]-pldl-old male with history of hypertension, hypothyroidism, gastroparesis reflux disease brought in by family members with complaints of increasing shortness of breath. She was started on Augmentin few days ago for presumed bronchitis. Patient never had a history of congestive heart failure as per the family. BNP was elevated at the time of admission and CT chest indicates bilateral pulmonary edema with possible infiltrates. Patient is comfortably in the bed nodding her head responding appropriately to the verbal commands. Most of the history is provided by the son at bedside. He wants her to be a full code. It is presently on IV Lasix, potassium supplementation and IV hydralazine for elevated blood pressures. Echocardiogram report is pending. 06/06/1941-89-ptuq-old female with multiple medical problems admitted with increasing shortness of breath. She is receiving outpatient antibiotic therapy for presumed bronchitis. As per the family she never had a history of congestiv e heart failure. Echocardiogram report is pending. Chest x-ray suggestive of pulmonary vascular congestion and small bilateral pleural effusions. Receiving IV Lasix at a smaller dose. No acute events in last 24 hours afebrile. Pulse ox is 98% on 2 L this morning. code Status is full code. Reason For Visit: HEART FAILURE Physical Exam Vital Signs: Temp Pulse Resp BP Pulse Ox 97.3 F 64 16 137/84 H 96 06/06/19 08:19 06/06/19 08:19 06/06/19 08:19 06/06/19 08:19 06/06/19 08:19 Intake & Output 06/05/19 06/06/19 06/07/19 06:59 06:59 06:59 Intake Total 550 250 Output Total 1325 Balance 550 -1075 Weight 41.3 kg 41.3 kg General appearance: PRESENT: no acute distress, thin Head exam: PRESENT: atraumatic Eye exam: PRESENT: conjunctiva pale, PERRLA Mouth exam: PRESENT: moist, tongue midline Teeth exam: PRESENT: poor dentation Neck exam: ABSENT: carotid bruit, JVD, lymphadenopathy, thyromegaly Respiratory exam: PRESENT: decreased breath sounds Cardiovascular exam: PRESENT: bradycardia GI/Abdominal exam: PRESENT: normal bowel sounds, soft. ABSENT: distended, guarding, mass, organolmegaly, rebound, tenderness Rectal exam: PRESENT: deferred Extremities exam: PRESENT: full ROM. ABSENT: calf tenderness, clubbing, pedal edema Neurological exam: PRESENT: alert, awake, oriented to person, oriented to place, oriented to time, oriented to situation, CN II-XII grossly intact. ABSENT: motor sensory deficit Psychiatric exam: PRESENT: appropriate affect, normal mood. ABSENT: homicidal ideation, suicidal ideation Results Laboratory Results: 06/06/19 04:49 06/06/19 04:49 06/06/19 06/06/19 04:49 04:49 WBC 11.6 H RBC 4.51 Hgb 13.8 Hct 40.6 MCV 90 MCH 30.7 MCHC 34.0 RDW 14.1 H Plt Count 210 Seg Neutrophils % Not Reportable Sodium 139.6 Potassium 3.1 L Chloride 94 L Carbon Dioxide 44 H* Anion Gap 2 L BUN 31 H Creatinine 0.57 Est GFR ( Amer) > 60 Glucose 124 H Calcium 8.4 Magnesium 2.3 06/04/19 06/04/19 06/04/19 15:43 22:07 22:07 Troponin I 0.030 0.021 NT-Pro-B Natriuret Pep 2950 H 06/05/19 04:52 Troponin I 0.023 NT-Pro-B Natriuret Pep Impressions: Chest X-Ray 06/04/19 16:41 IMPRESSION: Lordotic AP portable examination. There are probable small bilateral pleural effusions and associated bibasilar atelectasis or consolidation. Head CT 06/04/19 23:30 IMPRESSION: Atrophy and chronic small vessel ischemic changes with no acute intracranial abnormality. Assessment and Plan - Diagnosis (1) Hypertensive urgency Is this a current diagnosis for this admission?: Yes Plan: Vasotec, hydralazine, Lasix initiated 06/05/2019 patient is presently on IV hydralazine as needed, Lasix 20 mg IV daily and enalapril daily. Latest blood pressure is 155/78 improved compared to the admission blood pressures. Continues on hydrochlorothiazide at home plan is to resume hydrochlorothiazide and start potassium supplementations from today. hyper Tensive urgency is resolving. 06/06/2019-patient came in with hypertensive urgency with systolic blood pressure more than 200 patient is presently on Lasix 20 mg IV daily and enalapril 5 mg po daily, [id number] mg po daily, metoprolol 50 mg po bid, latest blood pressure is 137/60. Stable. Hypertensive urgency may be secondary to noncompliance to medications resolved. (2) Heart failure Qualifiers: Heart failure type: unspecified Heart failure chronicity: unspecified Qualified Code(s): I50.9 - Heart failure, unspecified Is this a current diagnosis for this admission?: No Plan: Unclear history, follow-up 2D echo, F care set deployed, 06/05/2019-patient admitted with elevated BNP, CT scan suggestive of bilateral pulmonary edema and uncontrolled hypertension. Most likely patient has chronic systolic heart failure. Echo report is pending. Presently on Lasix 20 mg IV daily and to closely monitor for fluid overload and to repeat the chest x-ray tomorrow. 06/06/2019-patient admitted with elevated BNP CT scan of the chest suggestive of pulmonary edema. Most likely patient has chronic systolic heart failure. Echocardiogram was requested. Repeat chest x-ray report for today is pending. Plan is to continue IV Lasix 20 mg daily at this time. (3) Hypokalemia Is this a current diagnosis for this admission?: Yes Plan: Likely secondary to hydrochlorothiazide, repleted, follow-up magnesium, and chemistry 06/05/2019-patient came in with serum potassium of 2.8 getting potassium supplementations may be secondary to hydrochlorothiazide started on 40 mg of potassium supplementation on daily basis and restarted on hydrochlorothiazide from today. plan is to check the labs on daily basis. 06/06/2019-serum potassium is 3.1 hyperkalemia most likely secondary to diuretics. To give 40 mg of p.o. potassium today. (4) Hypoxemia Is this a current diagnosis for this admission?: Yes Plan: 06/05/2019 patient came in with hypoxia and complaints of shortness of breath most likely secondary to possible underlying heart failure/pneumonia. Patient receiving IV Lasix 20 mg daily and started on IV Rocephin 1 g daily for questionable pneumonia suggested on CT chest. 03/06/2020-patient came in with hypoxia most likely secondary to CHF exacerbation presently on IV Lasix 20 mg daily, IV ceftriaxone 1 g daily. WBC count is 11,600 T-max is 97.4. Cultures are negative so far. CT scan suggestive of questionable pneumonia. (5) Pneumonia Is this a current diagnosis for this admission?: Yes Plan: 06/05/2019-CT scan suggestive of possibility of consolidated pneumonia WBC count is 11,800 came in with shortness of breath but no fevers. Started on IV Rocephin 1 g daily. To request for the blood cultures and sputum cultures. May be patient has occult community-acquired pneumonia. Influenza A and B neg. (6) Protein-energy malnutrition Is this a current diagnosis for this admission?: Yes
[2019-06-06] MEDS: POTASSIUM CHLORIDE 10 MEQ TABLET.ER PO SCH (10:53)
[2019-06-06] MEDS: ASPIRIN 81 MG TABLET, ENT COATED PO SCH (10:53)
[2019-06-06] MEDS: ATENOLOL 50 MG TABLET PO SCH ×2 (10:53→18:23)
[2019-06-06] MEDS: CEFTRIAXONE 1 GM/D5W RTU 1 GM/50 ML RTUPB IV SCH (10:53)
[2019-06-06] MEDS: ENALAPRIL MALEATE 5 MG TABLET PO SCH (10:53)
[2019-06-06] MEDS: BENZONATATE 100 MG CAPSULE PO SCH ×3 (10:53→18:23)
[2019-06-06] MEDS: ASCORBIC ACID 500 MG TABLET PO SCH (10:54)
--- NOTE | 2019-06-06 12:38 | RADIOLOGY REPORT (SQ) ---
EXAM DESCRIPTION: CHEST 2 VIEWS COMPLETED DATE/TIME: 06/06/2019 12:24 pm REASON FOR STUDY: chf COMPARISON: 06/04/2019 EXAM PARAMETERS: NUMBER OF VIEWS: two views TECHNIQUE: Digital Frontal and Lateral radiographic views of the chest acquired. RADIATION DOSE: NA LIMITATIONS: none FINDINGS: LUNGS AND PLEURA: Severe emphysematous change with chronic interstitial opacities and incr eased AP diameter. Unchanged left basilar opacities, likely scarring. Trace effusions versus pleura l thickening. No pneumothorax. MEDIASTINUM AND HILAR STRUCTURES: No masses or contour abnormalities. HEART AND VASCULAR STRUCTURES: Normal heart size. Aortic atherosclerosis. BONES: No acute findings. Decreased mineralization. Severe degenerative changes at the shoulders bi laterally. HARDWARE: None in the chest. OTHER: No other significant finding. IMPRESSION: Severe emphysematous change with likely trace effusions. No overt pulmonary edema. TECHNICAL DOCUMENTATION: JOB ID: [id number] [employer]- All Rights Reserved Reading location - IP/workstation name: [email or web address]
[2019-06-06] MEDS: FAMOTIDINE 20 MG TABLET PO SCH (18:23)
[2019-06-06] MEDS: ATORVASTATIN CALCIUM 10 MG TABLET PO SCH (22:22)
[2019-06-06] MEDS: CYANOCOBALAMIN (VITAMIN B-12) 1,000 MCG TABLET PO SCH (22:22)
[2019-06-07] MEDS: HEPARIN SOD (PORCINE) 5,000 UNIT/ML 1 ML VIAL SUBCUT SCH ×3 (05:09→21:46)
[2019-06-07] MEDS: LEVOTHYROXINE SODIUM 0.112 MG TABLET PO SCH (05:11)
[2019-06-07 06:31] LABS: HEMOGLOBIN 13.4 g/dL (12.0-15.5); MEAN CORPUSCULAR HGB CONC 34.4 g/dL (32.0-36.0); MEAN CORPUSCULAR VOLUME 90 fl (80-97); PLATELET COUNT 196 10^3/uL (150-450); RED BLOOD COUNT 4.33 10^6/uL (3.72-5.28); RED CELL DISTRIBUTION WIDTH 14.1 % (11.5-14.0); WHITE BLOOD COUNT 10.3 10^3/uL (4.0-10.5)
[2019-06-07 06:53] LABS: ABSOLUTE LYMPHOCYTES# (MANUAL) 0.8 10^3/uL (0.5-4.7); ABSOLUTE MONOCYTES # (MANUAL) 0.3 10^3/uL (0.1-1.4); BASOPHILS % (MANUAL) 0 % (0-2); EOSINOPHILS % (MANUAL) 1 % (0-6); LYMPHOCYTES % (MANUAL) 6 % (13-45); MONOCYTES % (MANUAL) 3 % (3-13); SEGMENTED NEUTROPHILS % (MAN) 88 % (42-78); TOTAL CELLS COUNTED 100
[2019-06-07 06:54] LABS: OVALOCYTES SLIGHT; POIKILOCYTOSIS SLIGHT
[2019-06-07 06:55] LABS: PLATELET COMMENT ADEQUATE; POLYCHROMASIA SLIGHT
[2019-06-07 07:11] LABS: ALBUMIN 2.4 g/dL (3.5-5.0); ALKALINE PHOSPHATASE 98 U/L (38-126); ASPARTATE AMINO TRANSFERASE 23 U/L (14-36); BILIRUBIN,DIRECT 0.2 mg/dL (0.0-0.4); BILIRUBIN,TOTAL 0.4 mg/dL (0.2-1.3); BLOOD UREA NITROGEN 30 mg/dL (7-20); CALCIUM 8.6 mg/dL (8.4-10.2); CHLORIDE 92 mmol/L (98-107); GLUCOSE 119 mg/dL (75-110); POTASSIUM 4.1 mmol/L (3.6-5.0)
[2019-06-07 07:25] LABS: ANION GAP 3 (5-19); CARBON DIOXIDE 43 mmol/L (22-30)
[2019-06-07] MEDS: MULTIVITAMIN TABLET PO SCH (08:31)
[2019-06-07] MEDS: PANTOPRAZOLE SODIUM 40 MG TABLET.DR PO SCH ×2 (08:31→17:23)
[2019-06-07] MEDS: HYDROCHLOROTHIAZIDE 12.5 MG TABLET PO SCH (08:31)
[2019-06-07] MEDS: CEFTRIAXONE 1 GM/D5W RTU 1 GM/50 ML RTUPB IV SCH (10:26)
[2019-06-07] MEDS: ATENOLOL 50 MG TABLET PO SCH ×2 (10:27→17:23)
[2019-06-07] MEDS: ENALAPRIL MALEATE 5 MG TABLET PO SCH (10:27)
[2019-06-07] MEDS: ASCORBIC ACID 500 MG TABLET PO SCH (10:27)
[2019-06-07] MEDS: ASPIRIN 81 MG TABLET, ENT COATED PO SCH (10:27)
[2019-06-07] MEDS: POTASSIUM CHLORIDE 10 MEQ TABLET.ER PO SCH (10:27)
[2019-06-07] MEDS: BENZONATATE 100 MG CAPSULE PO SCH ×3 (10:27→17:24)
[2019-06-07] MEDS: FUROSEMIDE INJ/PF 20 MG/2 ML SDV IV SCH (10:28)
[2019-06-07] MEDS: NIFEDIPINE 30 MG TAB.ER.24 PO SCH (13:18)
--- NOTE | 2019-06-07 14:41 | PDOC PROGRESS REPORT ---
Subjective Reason For Visit: HEART FAILURE Physical Exam Vital Signs: Temp Pulse Resp BP Pulse Ox 97.4 F 83 20 122/77 98 06/07/19 12:47 06/07/19 12:47 06/07/19 12:47 06/07/19 12:47 06/07/19 12:47 Intake & Output 06/06/19 06/07/19 06/08/19 06:59 06:59 06:59 Intake Total 250 1570 Output Total 1325 0 Balance -1075 1570 Weight 41.3 kg 47.9 kg Results Laboratory Results: 06/07/19 06:13 06/07/19 06:13 06/07/19 06/07/19 06:13 06:13 WBC 10.3 RBC 4.33 Hgb 13.4 Hct 39.0 MCV 90 MCH 31.0 MCHC 34.4 RDW 14.1 H Plt Count 196 Seg Neutrophils % Not Reportable Sodium 138.1 Potassium 4.1 Chloride 92 L Carbon Dioxide 43 H* Anion Gap 3 L BUN 30 H Creatinine 0.49 L Est GFR ( Amer) > 60 Glucose 119 H Calcium 8.6 Magnesium 2.1 Total Bilirubin 0.4 AST 23 Alkaline Phosphatase 98 Total Protein 5.0 L Albumin 2.4 L 06/04/19 06/04/19 06/04/19 15:43 22:07 22:07 Troponin I 0.030 0.021 NT-Pro-B Natriuret Pep 2950 H 06/05/19 04:52 Troponin I 0.023 NT-Pro-B Natriuret Pep Impressions: Head CT 06/04/19 23:30 IMPRESSION: Atrophy and chronic small vessel ischemic changes with no acute intracranial abnormality. Chest X-Ray 06/06/19 08:15 IMPRESSION: Severe emphysematous change with likely trace effusions. No overt pulmonary edema. Assessment and Plan - Diagnosis (1) Dyspnea Qualifiers: Dyspnea type: unspecified Qualified Code(s): R06.00 - Dyspnea, unspecified Is this a current diagnosis for this admission?: Yes Plan: Treatment of respiratory failure as below (2) Heart failure Qualifiers: Heart failure type: unspecified Heart failure chronicity: unspecified Qualified Code(s): I50.9 - Heart failure, unspecified Is this a current diagnosis for this admission?: No Plan: Unclear history, follow-up 2D echo, [facility] care set deployed, 06/05/2019-patient admitted with elevated BNP, CT scan suggestive of bilateral pulmonary edema and uncontrolled hypertension. Most likely patient has chronic systolic heart failure. Echo report is pending. Presently on Lasix 20 mg IV daily and to closely monitor for fluid overload and to repeat the chest x-ray tomorrow. 06/06/2019-patient admitted with elevated BNP CT scan of the chest suggestive of pulmonary edema. Most likely patient has chronic systolic heart failure. Echocardiogram was requested. Repeat chest x-ray report for today is pending. Plan is to continue IV Lasix 20 mg daily at this time. 06/07: Waiting on echocardiogram to be read. Further cardiac testing may be warranted depending on the results of this test. Continue diuresis. No need for thiazide and additional Lasix, stopped this as patient seems to be developing contraction alkalosis and it doesn't look like she has much fluid left to diurese out of her. (3) Hypertensive urgency Is this a current diagnosis for this admission?: Yes (4) Hypokalemia Is this a current diagnosis for this admission?: Yes Plan: Likely secondary to hydrochlorothiazide, repleted, follow-up magnesium, and chemistry 06/05/2019-patient came in with serum potassium of 2.8 getting potassium supplementations may be secondary to hydrochlorothiazide started on 40 mg of potassium supplementation on daily basis and restarted on hydrochlorothiazide from today. plan is to check the labs on daily basis. 06/06/2019-serum potassium is 3.1 hyperkalemia most likely secondary to diuretics. To give 40 mg of p.o. potassium today. 06/07: resolved. monitor K+ (5) Hypoxemia Is this a current diagnosis for this admission?: Yes Plan: 06/05/2019 patient came in with hypoxia and complaints of shortness of breath most likely secondary to possible underlying heart failure/pneumonia. Patient receiving IV Lasix 20 mg daily and started on IV Rocephin 1 g daily for questionable pneumonia suggested on CT chest. 03/06/2020-patient came in with hypoxia most likely secondary to CHF exacerbation presently on IV Lasix 20 mg daily, IV ceftriaxone 1 g daily. WBC count is 11,600 T-max is 97.4. Cultures are negative so far. CT scan suggestive of questionable pneumonia. 06/07: gradually improving. cont supportive care. (6) Pneumonia Is this a current diagnosis for this admission?: Yes Plan: 06/05/2019-CT scan suggestive of possibility of consolidated pneumonia WBC count is 11,800 came in with shortness of breath but no fevers. Started on IV Rocephin 1 g daily. To request for the blood cultures and sputum cultures. May be patient has occult community-acquired pneumonia. Influenza A and B neg. 06/07: cont abx, improving (7) Protein-energy malnutrition Qualifiers: Protein-calorie malnutrition severity: moderate Qualified Code(s): E44.0 - Moderate protein-calorie malnutrition Is this a current diagnosis for this admission?: Yes Plan: 06/05/2019-patient BMI is less than 19. Dietary consult be requested and to start her on Ensure 3 times daily. 06/07: encourage nutrition. may benefit form outpt nutrition consult - Time Time Spent with patient: 25-34 minutes - Inpatient Certification Medical Necessity: Need Close Monitoring Due to Risk of Patient Decompensation
--- NOTE | 2019-06-07 16:14 | RADIOLOGY REPORT (SQ) ---
EXAM DESCRIPTION: CHEST SINGLE VIEW COMPLETED DATE/TIME: 06/07/2019 2:50 pm REASON FOR STUDY: SOB, lethargy COMPARISON: Chest radiograph, 06/04/2019 EXAM PARAMETERS: NUMBER OF VIEWS: One view. TECHNIQUE: Single frontal radiographic view of the chest acquired. RADIATION DOSE: NA LIMITATIONS: None. FINDINGS: LUNGS AND PLEURA: Severe pulmonary emphysema Halley of focal consolidation or pleural eff usion. No pneumothorax. MEDIASTINUM AND HILAR STRUCTURES: No masses. Contour normal. HEART AND VASCULAR STRUCTURES: Heart normal in size. Normal vasculature. BONES: Severe osteoarthritis bilateral shoulders, unchanged. HARDWARE: None in the chest. OTHER: No other significant finding. IMPRESSION: Severe pulmonary emphysema. No acute cardiopulmonary disease. TECHNICAL DOCUMENTATION: JOB ID: [id number] [employer]- All Rights Reserved Reading location - IP/workstation name: [email or web address]
[2019-06-07] MEDS: FAMOTIDINE 20 MG TABLET PO SCH (17:24)
[2019-06-07 17:51] LABS: ARTERIAL BLOOD BASE EXCESS 11.7 mmol/L; ARTERIAL BLOOD FIO2 2; ARTERIAL BLOOD H2CO3 1.52 mmol/L (1.05-1.35); ARTERIAL BLOOD HCO3 37.2 mmol/L (20-24); ARTERIAL BLOOD PCO2 50.6 mmHg (35-45); ARTERIAL BLOOD PH 7.48 (7.35-7.45); ARTERIAL BLOOD PO2 70.5 mmHg (80-100); ARTERIAL BLOOD TOTAL CO2 38.7 mmol/L (21-25)
--- NOTE | 2019-06-07 18:19 | XCELERA REPORT ---
[address] [address] Transthoracic Echocardiogram Report Name: REYES BERRY Age: 88 yrs Gender: Female : 1930 Patient Status: Inpatient Patient Location: [address] [place] [address] Study Date: 06/06/2019 02:52 PM Height: 61 in Weight: 91 lb BSA: 1.4 m2 Procedure: A two-dimensional transthoracic echocardiogram with color flow and Doppler was performed. Study Quality: Fair. Reason For Study: systolic murmur History: systolic murmur. Ordering Physician: ERIC MALCOLM Performed By: Nohemy Nice Interpretation Summary The left ventricle is normal in size. There is normal left ventricular wall thickness. LV EF is 70% Left ventricular systolic function is normal. Doppler measurements suggest impaired left ventricular relaxation, which is associated with grade I/IV or mild diastolic dysfunction The left ventricular wall motion is normal. There is no thrombus. No ASD ,VSD or PFO seen. The right ventricle is grossly normal size. The right ventricle is not well visualized secondary to technical limitations The right atrium is normal. The left atrial size is normal. There is no evidence of mitral valve prolapse. There is no vegetation seen on the mitral valve. There is no mitral valve stenosis. There is a mild amount of mitral regurgitation There is no aortic valvular vegetation. There is no aortic valve stenosis There is aortic sclerosis without aortic stenosis. There is no LVOT obstruction. There is a mild to moderate amount of aortic regurgitation There is no tricuspid stenosis. There is a mild to moderate amount of tricuspid regurgitation There is moderate pulmonary hypertension by echo RVSP is 50 to 55 mm of Hg , with RA mean of 5 to 10. There is no pulmonic valvular stenosis. There is a trace amount of pulmonic regurgitation The aortic root is normal size. The inferior vena cava appeared normal and decreased > 50% with respiration (RAP 5-10 mmHg) There is no pericardial effusion. MMode/2D Measurements & Calculations RVDd: 3.2 cm LVIDd: 3.4 cm FS: 40.2 % Ao root diam: 3.4 cm IVSd: 1.1 cm LVIDs: 2.0 cm EDV(Teich): 47.5 ml Ao root area: 9.0 cm2 LVPWd: 0.96 cm ESV(Teich): 13.3 ml LA dimension: 2.8 cm EF(Teich): 72.1 % Doppler Measurements & Calculations MV E max yovani: MV P1/2t max yovani: Ao V2 max: AI max yovani: 56.3 cm/sec 56.3 cm/sec 141.2 cm/sec 422.1 cm/sec MV A max yovani: MV P1/2t: 112.2 msec Ao max PG: AI max P.6 cm/sec MVA(P1/2t): 2.0 cm2 8.0 mmHg 71.3 mmHg MV E/A: 0.54 MV dec slope: AI dec slope: 320.2 cm/sec2 146.9 cm/sec2 AI P1/2t: MV dec time: 386.1 msec 0.37 sec LV V1 max PG: PA V2 max: PI end-d yovani: TR max yovani: 5.2 mmHg 67.6 cm/sec 181.9 cm/sec 333.4 cm/sec LV V1 max: PA max P.8 mmHg TR max P.5 cm/sec 44.5 mmHg AV P1/2t-pr_phl: MV P1/2t-pr_phl: 386.1 msec 112.2 msec Left Ventricle The left ventricle is normal in size. There is normal left ventricular wall thickness. LV EF is 70%. Left ventricular systolic function is normal. Doppler measurements suggest impaired left ventricular relaxation, which is associated with grade I/IV or mild diastolic dysfunction. The left ventricular wall motion is normal. There is no thrombus. No ASD ,VSD or PFO seen. Right Ventricle The right ventricle is grossly normal size. The right ventricle is not well visualized secondary to technical limitations. Atria The right atrium is normal. The left atrial size is normal. Mitral Valve There is no evidence of mitral valve prolapse. There is no vegetation seen on the mitral valve. There is no mitral valve stenosis. There is a mild amount of mitral regurgitation. Aortic Valve There is no aortic valvular vegetation. There is no aortic valve stenosis. There is aortic sclerosis without aortic stenosis. There is no LVOT obstruction. There is a mild to moderate amount of aortic regurgitation. Tricuspid Valve There is no tricuspid stenosis. There is a mild to moderate amount of tricuspid regurgitation. There is moderate pulmonary hypertension by echo. RVSP is 50 to 55 mm of Hg , with RA mean of 5 to 10. Pulmonic Valve There is no pulmonic valvular stenosis. There is a trace amount of pulmonic regurgitation. Great Vessels The aortic root is normal size. The inferior vena cava appeared normal and decreased > 50% with respiration (RAP 5-10 mmHg). Effusions There is no pericardial effusion. : ERIC MALCOLM Lakshmi
[2019-06-07] MEDS: ATORVASTATIN CALCIUM 10 MG TABLET PO SCH (21:44)
[2019-06-07] MEDS: CYANOCOBALAMIN (VITAMIN B-12) 1,000 MCG TABLET PO SCH (21:45)
[2019-06-08] MEDS: LEVOTHYROXINE SODIUM 0.112 MG TABLET PO SCH (05:19)
[2019-06-08] MEDS: HEPARIN SOD (PORCINE) 5,000 UNIT/ML 1 ML VIAL SUBCUT SCH ×3 (05:19→21:43)
[2019-06-08] MEDS: POTASSIUM CHLORIDE 10 MEQ TABLET.ER PO SCH (09:21)
[2019-06-08] MEDS: BENZONATATE 100 MG CAPSULE PO SCH ×3 (09:22→17:15)
[2019-06-08] MEDS: FUROSEMIDE INJ/PF 20 MG/2 ML SDV IV SCH (09:22)
[2019-06-08] MEDS: PANTOPRAZOLE SODIUM 40 MG TABLET.DR PO SCH ×2 (09:22→17:14)
[2019-06-08] MEDS: NIFEDIPINE 30 MG TAB.ER.24 PO SCH (09:22)
[2019-06-08] MEDS: ASPIRIN 81 MG TABLET, ENT COATED PO SCH (09:22)
[2019-06-08] MEDS: MULTIVITAMIN TABLET PO SCH (09:22)
[2019-06-08] MEDS: ATENOLOL 50 MG TABLET PO SCH ×2 (09:22→17:15)
[2019-06-08] MEDS: ASCORBIC ACID 500 MG TABLET PO SCH (09:22)
[2019-06-08] MEDS: ENALAPRIL MALEATE 5 MG TABLET PO SCH (09:23)
[2019-06-08] MEDS: CEFTRIAXONE 1 GM/D5W RTU 1 GM/50 ML RTUPB IV SCH (09:23)
--- NOTE | 2019-06-08 15:01 | PDOC PROGRESS REPORT ---
Subjective Progress Note for:: 06/08/19 Subjective:: Patient is a 88-year-old white female who presented for acute COPD exacerbation and CHF. Reason For Visit: HEART FAILURE Physical Exam Vital Signs: Temp Pulse Resp BP Pulse Ox 97.2 F 83 17 124/66 96 06/08/19 11:46 06/08/19 11:46 06/08/19 11:46 06/08/19 11:46 06/08/19 11:46 Intake & Output 06/07/19 06/08/19 06/09/19 06:59 06:59 06:59 Intake Total 1570 1383 770 Output Total 0 0 Balance 1570 1383 770 Weight 37.9 kg 37.5 kg General appearance: PRESENT: no acute distress, well-developed, well-nourished Head exam: PRESENT: atraumatic, normocephalic Respiratory exam: PRESENT: unlabored, wheezes. ABSENT: crackles, rhonchi Cardiovascular exam: PRESENT: RRR. ABSENT: diastolic murmur, rubs, systolic murmur GI/Abdominal exam: PRESENT: normal bowel sounds, soft. ABSENT: distended, guarding, mass, organolmegaly, rebound, tenderness Neurological exam: PRESENT: alert, awake, oriented to person, oriented to place Psychiatric exam: PRESENT: appropriate affect, normal mood Skin exam: PRESENT: dry, intact, warm Results Laboratory Results: 06/07/19 06:13 06/07/19 06:13 06/07/19 17:20 Carbonic Acid 1.52 H HCO3/H2CO3 Ratio 24:1 ABG pH 7.48 H ABG pCO2 50.6 H ABG pO2 70.5 L ABG HCO3 37.2 H ABG O2 Saturation 95.0 ABG Base Excess 11.7 FiO2 2 06/04/19 06/04/19 06/04/19 15:43 22:07 22:07 Troponin I 0.030 0.021 NT-Pro-B Natriuret Pep 2950 H 06/05/19 04:52 Troponin I 0.023 NT-Pro-B Natriuret Pep Impressions: Head CT 06/04/19 23:30 IMPRESSION: Atrophy and chronic small vessel ischemic changes with no acute intracranial abnormality. Chest X-Ray 06/07/19 00:00 IMPRESSION: Severe pulmonary emphysema. No acute cardiopulmonary disease. Assessment and Plan - Diagnosis (1) Dyspnea Qualifiers: Dyspnea type: unspecified Qualified Code(s): R06.00 - Dyspnea, unspecified Is this a current diagnosis for this admission?: Yes (2) Heart failure Qualifiers: Heart failure type: unspecified Heart failure chronicity: unspecified Qualified Code(s): I50.9 - Heart failure, unspecified Is this a current diagnosis for this admission?: No Plan: Per previous clinician: Unclear history, follow-up 2D echo, CHF care set deployed, 06/05/2019-patient admitted with elevated BNP, CT scan suggestive of bilateral pulmonary edema and uncontrolled hypertension. Most likely patient has chronic systolic heart failure. Echo report is pending. Presently on Lasix 20 mg IV daily and to closely monitor for fluid overload and to repeat the chest x-ray tomorrow. 06/06/2019-patient admitted with elevated BNP CT scan of the chest suggestive of pulmonary edema. Most likely patient has chronic systolic heart failure. Echocardiogram was requested. Repeat chest x-ray report for today is pending. Plan is to continue IV Lasix 20 mg daily at this time. 06/07: Waiting on echocardiogram to be read. Further cardiac testing may be warranted depending on the results of this test. Continue diuresis. No need for thiazide and additional Lasix, stopped this as patient seems to be developing contraction alkalosis and it doesn't look like she has much fluid left to diurese out of her. Echocardiogram reviewed: Showed EF 70% normal, mild diastolic dysfunction, mo derate pulmonary hypertension, collapsible IVC (3) Hypertensive urgency Is this a current diagnosis for this admission?: Yes Plan: Vasotec, hydralazine, Lasix initiated 06/05/2019 patient is presently on IV hydralazine as needed, Lasix 20 mg IV daily and enalapril daily. Latest blood pressure is 155/78 improved compared to the admission blood pressures. Continues on hydrochlorothiazide at home plan is to resume hydrochlorothiazide and start potassium supplementations from today. hyper Tensive urgency is resolving. 06/06/2019-patient came in with hypertensive urgency with systolic blood pressure more than 200 patient is presently on Lasix 20 mg IV daily and enalapril 5 mg po daily, [id number] mg po daily, metoprolol 50 mg po bid, latest blood pressure is 137/60. Stable. Hypertensive urgency may be secondary to noncompliance to medications resolved. Since adding nifedipine yesterday, significant improvement in blood pressure, now 124/66; continue current regimen. There is no indication for IV hydralazine and this was stopped (4) Hypokalemia Is this a current diagnosis for this admission?: Yes (5) Hypoxemia Is this a current diagnosis for this admission?: Yes (6) Pneumonia Is this a current diagnosis for this admission?: Yes (7) Protein-energy malnutrition Qualifiers: Protein-calorie malnutrition severity: moderate Qualified Code(s): E44.0 - Moderate protein-calorie malnutrition Is this a current diagnosis for this admission?: Yes (8) Emphysema of lung Qualifiers: Emphysema type: panlobular Qualified Code(s): J43.1 - Panlobular emphysema Is this a current diagnosis for this admission?: Yes Plan: Upon getting much more extensive history from patient and son at bedside, they note patient has significant exposure to secondhand smoke as her smoked around her for many years; Patient denies ever smoking Highly suspect she has COPD from secondhand smoke exposure Chest imaging is shown severe emphysema which is consistent with COPD -Started Atrovent inhaler (9) Suspected sleep apnea Is this a current diagnosis for this admission?: Yes Plan: On exam, patient seems to be unable to breathe through her nose, Mallampati 4 airway, frequently somnolent throughout the day; high likelihood she has AUDREY Discussed with patient and son that she needs outpatient sleep study, possibly need CPAP which would also help with CO2 retention from her COPD - Time Time Spent with patient: 15-24 minutes - Inpatient Certification Medical Necessity: Need Close Monitoring Due to Risk of Patient Decompensation - Physical therapy eval needed. Patient may be appropriate for SNF. Possible discharge tomorrow if continued improvement.
[2019-06-08] MEDS: FAMOTIDINE 20 MG TABLET PO SCH (17:14)
[2019-06-08] MEDS: IPRATROPIUM BROMIDE 0.02% NEB 0.5 MG/2.5 ML AMPUL NEB SCH ×2 (17:36→20:55)
[2019-06-08] MEDS: ATORVASTATIN CALCIUM 10 MG TABLET PO SCH (21:43)
[2019-06-08] MEDS: CYANOCOBALAMIN (VITAMIN B-12) 1,000 MCG TABLET PO SCH (21:44)
[2019-06-09] MEDS: IPRATROPIUM BROMIDE 0.02% NEB 0.5 MG/2.5 ML AMPUL NEB SCH ×4 (02:19→20:48)
[2019-06-09] MEDS: HEPARIN SOD (PORCINE) 5,000 UNIT/ML 1 ML VIAL SUBCUT SCH ×3 (05:16→21:29)
[2019-06-09] MEDS: LEVOTHYROXINE SODIUM 0.112 MG TABLET PO SCH (05:16)
[2019-06-09] MEDS: ASPIRIN 81 MG TABLET, ENT COATED PO SCH (09:22)
[2019-06-09] MEDS: NIFEDIPINE 30 MG TAB.ER.24 PO SCH (09:22)
[2019-06-09] MEDS: BENZONATATE 100 MG CAPSULE PO SCH ×3 (09:22→17:11)
[2019-06-09] MEDS: POTASSIUM CHLORIDE 10 MEQ TABLET.ER PO SCH (09:22)
[2019-06-09] MEDS: ASCORBIC ACID 500 MG TABLET PO SCH (09:22)
[2019-06-09] MEDS: PANTOPRAZOLE SODIUM 40 MG TABLET.DR PO SCH ×2 (09:23→15:41)
[2019-06-09] MEDS: MULTIVITAMIN TABLET PO SCH (09:23)
[2019-06-09] MEDS: CEFTRIAXONE 1 GM/D5W RTU 1 GM/50 ML RTUPB IV SCH (09:23)
[2019-06-09] MEDS: ATENOLOL 50 MG TABLET PO SCH ×2 (09:23→17:11)
[2019-06-09] MEDS: FUROSEMIDE INJ/PF 20 MG/2 ML SDV IV SCH (09:23)
[2019-06-09] MEDS: ENALAPRIL MALEATE 5 MG TABLET PO SCH (09:25)
--- NOTE | 2019-06-09 15:27 | PDOC PROGRESS REPORT ---
Subjective Progress Note for:: 06/09/19 Subjective:: Patient is a 88-year-old white female who presented for acute COPD exacerbation and CHF. 06/09: Long discussion with patient's son regarding hospital course and plan going forward. Discussed echo results with him and that she has diastolic heart failure but good EF. She had some bradycardia and desaturation overnight which prompted RN to increase supplemental oxygen. Suspect this was due to her ongoing untreated sleep apnea. CPAP nightly may resolve this problem. She has no new complaints but is still quite weak. Physical therapy will be seeing her today Reason For Visit: HEART FAILURE Physical Exam Vital Signs: Temp Pulse Resp BP Pulse Ox 97.4 F 77 14 132/68 H 90 L 06/09/19 07:41 06/09/19 14:50 06/09/19 14:50 06/09/19 07:41 06/09/19 14:50 Intake & Output 06/08/19 06/09/19 06/10/19 06:59 06:59 06:59 Intake Total 1383 1230 530 Output Total 200 0 Balance 1383 1030 530 Weight 37.5 kg 52.1 kg General appearance: PRESENT: no acute distress, well-developed, well-nourished Head exam: PRESENT: atraumatic, normocephalic Eye exam: PRESENT: conjunctiva pink Respiratory exam: PRESENT: clear to auscultation eve. ABSENT: rales, rhonchi, wheezes Cardiovascular exam: PRESENT: RRR. ABSENT: diastolic murmur, rubs, systolic murmur GI/Abdominal exam: PRESENT: normal bowel sounds, soft. ABSENT: distended, guarding, mass, organolmegaly, rebound, tenderness Neurological exam: PRESENT: alert, awake, oriented to person, oriented to place Psychiatric exam: PRESENT: appropriate affect, normal mood Skin exam: PRESENT: dry, intact, warm Results Laboratory Results: 06/07/19 06:13 06/07/19 06:13 06/04/19 06/04/19 06/04/19 15:43 22:07 22:07 Troponin I 0.030 0.021 NT-Pro-B Natriuret Pep 2950 H 06/05/19 04:52 Troponin I 0.023 NT-Pro-B Natriuret Pep Impressions: Head CT 06/04/19 23:30 IMPRESSION: Atrophy and chronic small vessel ischemic changes with no acute intracranial abnormality. Chest X-Ray 06/07/19 00:00 IMPRESSION: Severe pulmonary emphysema. No acute cardiopulmonary disease. Assessment and Plan - Diagnosis (1) Dyspnea Qualifiers: Dyspnea type: unspecified Qualified Code(s): R06.00 - Dyspnea, unspecified Is this a current diagnosis for this admission?: Yes (2) Heart failure Qualifiers: Heart failure type: unspecified Heart failure chronicity: unspecified Qualified Code(s): I50.9 - Heart failure, unspecified Is this a current diagnosis for this admission?: No (3) Hypertensive urgency Is this a current diagnosis for this admission?: Yes Plan: Vasotec, hydralazine, Lasix initiated 06/05/2019 patient is presently on IV hydralazine as needed, Lasix 20 mg IV daily and enalapril daily. Latest blood pressure is 155/78 improved compared to the admission blood pressures. Continues on hydrochlorothiazide at home plan is to resume hydrochlorothiazide and start potassium supplementations from today. hyper Tensive urgency is resolving. 06/06/2019-patient came in with hypertensive urgency with systolic blood pressure more than 200 patient is presently on Lasix 20 mg IV daily and enalapril 5 mg po daily, ewijeduztvqufyeuqit85.5 mg po daily, metoprolol 50 mg po bid, latest blood pressure is 137/60. Stable. Hypertensive urgency may be secondary to noncompliance to medications resolved. Since adding nifedipine yesterday, significant improvement in blood pressure, now 124/66; continue current regimen. There is no indication for IV hydralazine and this was stopped (4) Hypokalemia Is this a current diagnosis for this admission?: Yes (5) Hypoxemia Is this a current diagnosis for this admission?: Yes (6) Pneumonia Is this a current diagnosis for this admission?: Yes (7) Protein-energy malnutrition Qualifiers: Protein-calorie malnutrition severity: moderate Qualified Code(s): E44.0 - Moderate protein-calorie malnutrition Is this a current diagnosis for this admission?: Yes (8) Emphysema of lung Qualifiers: Emphysema type: panlobular Qualified Code(s): J43.1 - Panlobular emphysema Is this a current diagnosis for this admission?: Yes (9) Suspected sleep apnea Is this a current diagnosis for this admission?: Yes Plan: On exam, patient seems to be unable to breathe through her nose, Mallampati 4 airway, frequently somnolent throughout the day; high likelihood she has AUDREY Discussed with patient and son that she needs outpatient sleep study, possibly need CPAP which would also help with CO2 retention from her COPD Having episodic bradycardia and desaturation while sleeping - Time Time Spent with patient: 15-24 minutes Anticipated discharge: Home with Homehealth Within: within 48 hours - Inpatient Certification Medical Necessity: Need Close Monitoring Due to Risk of Patient Decompensation - Close to discharge, likely 1 to 2 days to go home with home health versus SNF
[2019-06-09] MEDS: FAMOTIDINE 20 MG TABLET PO SCH (17:11)
[2019-06-09] MEDS: ATORVASTATIN CALCIUM 10 MG TABLET PO SCH (21:28)
[2019-06-09] MEDS: CYANOCOBALAMIN (VITAMIN B-12) 1,000 MCG TABLET PO SCH (21:29)
[2019-06-10] MEDS: IPRATROPIUM BROMIDE 0.02% NEB 0.5 MG/2.5 ML AMPUL NEB SCH ×3 (02:45→13:56)
[2019-06-10] MEDS: LEVOTHYROXINE SODIUM 0.112 MG TABLET PO SCH (05:35)
[2019-06-10] MEDS: HEPARIN SOD (PORCINE) 5,000 UNIT/ML 1 ML VIAL SUBCUT SCH ×2 (05:35→13:59)
[2019-06-10] MEDS: MULTIVITAMIN TABLET PO SCH (08:39)
[2019-06-10] MEDS: PANTOPRAZOLE SODIUM 40 MG TABLET.DR PO SCH (08:39)
[2019-06-10] MEDS: ASPIRIN 81 MG TABLET, ENT COATED PO SCH (09:30)
[2019-06-10] MEDS: ATENOLOL 50 MG TABLET PO SCH (09:30)
[2019-06-10] MEDS: ENALAPRIL MALEATE 5 MG TABLET PO SCH (09:32)
[2019-06-10] MEDS: NIFEDIPINE 30 MG TAB.ER.24 PO SCH (09:32)
[2019-06-10] MEDS: BENZONATATE 100 MG CAPSULE PO SCH ×2 (09:34→14:00)
[2019-06-10] MEDS: ASCORBIC ACID 500 MG TABLET PO SCH (09:34)
[2019-06-10] MEDS: CEFTRIAXONE 1 GM/D5W RTU 1 GM/50 ML RTUPB IV SCH (09:35)
[2019-06-10] MEDS: POTASSIUM CHLORIDE 10 MEQ TABLET.ER PO SCH (09:35)
[2019-06-10 10:05] LABS: ANION GAP 7 (5-19); BLOOD UREA NITROGEN 31 mg/dL (7-20); CALCIUM 8.7 mg/dL (8.4-10.2); CARBON DIOXIDE 35 mmol/L (22-30); CHLORIDE 90 mmol/L (98-107); GLUCOSE 150 mg/dL (75-110); POTASSIUM 4.6 mmol/L (3.6-5.0)
[2019-06-10] MEDS: FUROSEMIDE INJ/PF 20 MG/2 ML SDV IV SCH (10:16)
--- NOTE | 2019-06-10 13:15 | PDOC DISCHARGE SUMMARY ---
Impression - Admit/DC Date/PCP Admission Date/Primary Care Provider: 06/05/19 03:59 ELOY CORBIN MD Discharge Date: 06/10/19 - Discharge Diagnosis (1) Dyspnea Is this a current diagnosis for this admission?: Yes (2) Heart failure Is this a current diagnosis for this admission?: Yes (3) Hypertensive urgency Is this a current diagnosis for this admission?: Yes (4) Hypokalemia Is this a current diagnosis for this admission?: Yes (5) Hypoxemia Is this a current diagnosis for this admission?: Yes (6) Pneumonia Is this a current diagnosis for this admission?: Yes (7) Protein-energy malnutrition Is this a current diagnosis for this admission?: Yes (8) Emphysema of lung Is this a current diagnosis for this admission?: Yes (9) Suspected sleep apnea Is this a current diagnosis for this admission?: Yes - Additional Information Resuscitation Status: Full Code Discharge Diet: Cardiac Discharge Activity: Activity As Tolerated, Balance Activity w/Rest, Weigh Daily Referrals: ELOY CORBIN MD [Primary Care Provider] - Follow up as needed Prescriptions: Potassium Chloride [Klor-Con 10 Meq Tablet ER] 10 meq PO DAILY #30 tablet.er Furosemide [Lasix 20 mg Tablet] 20 mg PO DAILY #30 tablet Albuterol Sulfate [Proair Respiclick] 90 mcg IH Q2HP PRN #1 aer.pow.ba PRN Reason: Shortness Of Breath Nifedipine [Procardia XL 30 mg Tablet] 30 mg PO DAILY #30 tab.er.24 Tiotropium [place] [Spiriva Respimat] 4 gm IH DAILY #1 mist.inhal Enalapril Maleate [Vasotec 5 mg Tablet] 5 mg PO DAILY #30 tablet Home Medications: Ascorbate Calcium [Vitamin C] 500 mg PO QAM 06/05/19 Atenolol [Tenormin 50 mg Tablet] 50 mg PO Q12 06/05/19 Benzonatate [Tessalon Perles 100 mg Capsule] 100 mg PO Q8HP PRN 06/05/19 Cyanocobalamin (Vitamin B-12) [B-12] 2,500 mcg PO QHS 06/05/19 Famotidine [Pepcid 20 mg Tablet] 20 mg PO QHS 06/05/19 Levothyroxine Sodium 0.112 mg PO Q6AM 01/05/20 Multivit-Min/Iron/Folic/Lutein [Centrum Silver Women Tablet] 1 each PO QAM 06/05/19 Omeprazole 40 mg PO QAM 06/05/19 Pravastatin Sodium 20 mg PO QHS 06/05/19 Albuterol Sulfate [Proair Respiclick] 90 mcg IH Q2HP PRN #1 aer.pow.ba 06/10/19 Enalapril Maleate [Vasotec 5 mg Tablet] 5 mg PO DAILY #30 tablet 06/10/19 Furosemide [Lasix 20 mg Tablet] 20 mg PO DAILY #30 tablet 06/10/19 Nifedipine [Procardia XL 30 mg Tablet] 30 mg PO DAILY #30 tab.er.24 06/10/19 Potassium Chloride [Klor-Con 10 Meq Tablet ER] 10 meq PO DAILY #30 tablet.er 06/10/19 Tiotropium [place] [Spiriva Respimat] 4 gm IH DAILY #1 mist.inhal 06/10/19 History of Present Illiness History of Present Illness: REYES BERRY is a 88 year old female who presented with hypertensive urgency, COPD exacerbation, acute diastolic heart failure, and community- acquired pneumonia. Hospital Course Hospital Course: Diagnosis (1) Dyspnea -due to emphysema and dCHF (2) Diastolic Heart failure -New Dx -Echo reviewed -added lasix with good response (3) Hypertensive urgency Is this a current diagnosis for this admission?: Yes Plan: Vasotec, hydralazine, Lasix initiated 06/05/2019 patient is presently on IV hydralazine as needed, Lasix 20 mg IV daily and enalapril daily. Latest blood pressure is 155/78 improved compared to the admission blood pressures. Continues on hydrochlorothiazide at home plan is to resume hydrochlorothiazide and start potassium supplementations from today. hyper Tensive urgency is resolving. 06/06/2019-patient came in with hypertensive urgency with systolic blood pressure more than 200 patient was on Lasix 20 mg IV daily and enalapril 5 mg po daily, urcszbmeolbixdiwelx68.5 mg po daily, metoprolol 50 mg po bid, latest blood pressure is 137/60. Stable. Hypertensive urgency maybe secondary to noncompliance to medications resolved. Since adding nifedipine here, significant improvement in blood pressure, currently 120's/60's; continue current regimen. (4) Hypokalemia -stopped hctz, supplemented K+ -added ACEI (5) Hypoxemia resolved (6) CAP resolved -CAP -given 6d of CTX, course completed here (7) Protein-energy malnutrition -encourage PO intake (8) Emphysema of lung -seen on imaging -COPD due to extensive 2nd hand smoke exposure from spouse smoking, she is a never smoker however -started spriva and albuterol (9) Suspected sleep apnea On exam, patient unable to breathe through her nose, Mallampati 4 airway, frequently somnolent throughout the day; high likelihood she has AUDREY Discussed with patient and son that she needs outpatient sleep study, possibly need CPAP which would also help with CO2 retention from her COPD Having episodic bradycardia and desaturation while sleeping due to AUDREY which improved Physical Exam Vital Signs: Temp Pulse Resp BP Pulse Ox 97.3 F 70 18 127/70 H 80 L 06/10/19 07:20 06/10/19 09:32 06/10/19 08:00 06/10/19 09:32 06/10/19 08:00 Intake & Output 06/09/19 06/10/19 06/11/19 06:59 06:59 06:59 Intake Total 1230 1030 240 Output Total 200 0 0 Balance 1030 1030 240 Weight 52.1 kg 52.1 kg General appearance: PRESENT: no acute distress, thin Head exam: PRESENT: atraumatic, normocephalic Eye exam: PRESENT: conjunctiva pink Mouth exam: PRESENT: moist Cardiovascular exam: PRESENT: RRR. ABSENT: diastolic murmur, rubs, systolic murmur GI/Abdominal exam: PRESENT: normal bowel sounds, soft. ABSENT: distended, guarding, mass, organolmegaly, rebound, tenderness Musculoskeletal exam: PRESENT: ambulatory Neurological exam: PRESENT: alert, awake, oriented to person, oriented to place, oriented to time, oriented to situation Psychiatric exam: PRESENT: appropriate affect, normal mood Skin exam: PRESENT: dry, intact, warm Results Laboratory Results: WBC 10.3 10^3/uL (4.0-10.5) 06/07/19 06:13 RBC 4.33 10^6/uL (3.72-5.28) 06/07/19 06:13 Hgb 13.4 g/dL (12.0-15.5) 06/07/19 06:13 Hct 39.0 % (36.0-47.0) 06/07/19 06:13 MCV 90 fl (80-97) 06/07/19 06:13 MCH 31.0 pg (27.0-33.4) 06/07/19 06:13 MCHC 34.4 g/dL (32.0-36.0) 06/07/19 06:13 RDW 14.1 % (11.5-14.0) H 06/07/19 06:13 Plt Count 196 10^3/uL (150-450) 06/07/19 06:13 Lymph % (Auto) Not Reportable 06/07/19 06:13 [place] % (Auto) Not Reportable 06/07/19 06:13 Eos % (Auto) Not Reportable 06/07/19 06:13 Baso % (Auto) Not Reportable 06/07/19 06:13 Absolute Neuts (auto) Not Reportable 06/07/19 06:13 Absolute Lymphs (auto) Not Reportable 06/07/19 06:13 Absolute Monos (auto) Not Reportable 06/07/19 06:13 Absolute Eos (auto) Not Reportable 06/07/19 06:13 Absolute Basos (auto) Not Reportable 06/07/19 06:13 Total Counted 100 06/07/19 06:13 Seg Neutrophils % Not Reportable 06/07/19 06:13 Seg Neuts % (Manual) 88 % (42-78) H 06/07/19 06:13 Lymphocytes % (Manual) 6 % (13-45) L 06/07/19 06:13 Atypical Lymphs % 2 % (0) 06/07/19 06:13 Monocytes % (Manual) 3 % (3-13) 06/07/19 06:13 Eosinophils % (Manual) 1 % (0-6) 06/07/19 06:13 Basophils % (Manual) 0 % (0-2) 06/07/19 06:13 Abs Neuts (Manual) 9.1 10^3/uL (1.7-8.2) H 06/07/19 06:13 Abs Lymphs (Manual) 0.8 10^3/uL (0.5-4.7) 06/07/19 06:13 Abs Monocytes (Manual) 0.3 10^3/uL (0.1-1.4) 06/07/19 06:13 Absolute Eos (Manual) 0.1 10^3/uL (0.0-0.6) 06/07/19 06:13 Abs Basophils (Manual) 0.0 10^3/uL (0.0-0.2) 06/07/19 06:13 Toxic Granulation 1+ 06/06/19 04:49 Clumped Platelets PRESENT 06/04/19 15:43 Platelet Comment ADEQUATE 06/07/19 06:13 Polychromasia SLIGHT 06/07/19 06:13 Poikilocytosis SLIGHT 06/07/19 06:13 Anisocytosis SLIGHT 06/06/19 04:49 Tear Drop Cells SLIGHT 06/06/19 04:49 Ovalocytes SLIGHT 06/07/19 06:13 PT 13.8 SEC (11.4-15.4) 06/04/19 15:43 INR 1.05 06/04/19 15:43 Carbonic Acid 1.52 mmol/L (1.05-1.35) H 06/07/19 17:20 HCO3/H2CO3 Ratio 24:1 06/07/19 17:20 ABG pH 7.48 (7.35-7.45) H 06/07/19 17:20 ABG pCO2 50.6 mmHg (35-45) H 06/07/19 17:20 ABG pO2 70.5 mmHg (80-100) L 06/07/19 17:20 ABG HCO3 37.2 mmol/L (20-24) H 06/07/19 17:20 ABG Total CO2 38.7 mmol/L (21-25) H 06/07/19 17:20 ABG O2 Saturation 95.0 % (94-98) 06/07/19 17:20 ABG Base Excess 11.7 mmol/L 06/07/19 17:20 VBG pH 7.42 (7.30-7.42) 06/04/19 17:05 VBG pCO2 64.4 mmHg (35-63) H 06/04/19 17:05 VBG HCO3 41.2 mmol/L (20-32) H 06/04/19 17:05 VBG Base Excess 13.4 mmol/L 06/04/19 17:05 FiO2 2 06/07/19 17:20 Sodium 132.2 mmol/L (137-145) L 06/10/19 09:28 Potassium 4.6 mmol/L (3.6-5.0) 06/10/19 09:28 Chloride 90 mmol/L (98-107) L 06/10/19 09:28 Carbon Dioxide 35 mmol/L (22-30) H 06/10/19 09:28 Anion Gap 7 (5-19) 06/10/19 09:28 BUN 31 mg/dL (7-20) H 06/10/19 09:28 Creatinine 0.57 mg/dL (0.52-1.25) 06/10/19 09:28 Est GFR ( Amer) > 60 (>60) 06/10/19 09:28 Est GFR (MDRD) Non-Af > 60 (>60) 06/10/19 09:28 Glucose 150 mg/dL (75-110) H 06/10/19 09:28 POC Glucose 105 mg/dL (70-110) 06/04/19 20:03 Lactic Acid 1.2 mmol/L (0.7-2.1) 06/04/19 17:05 Calcium 8.7 mg/dL (8.4-10.2) 06/10/19 09:28 Magnesium 2.1 mg/dL (1.6-2.3) 06/07/19 06:13 Total Bilirubin 0.4 mg/dL (0.2-1.3) 06/07/19 06:13 Direct Bilirubin 0.2 mg/dL (0.0-0.4) 06/07/19 06:13 Neonat Total Bilirubin Not Reportable 06/07/19 06:13 Neonat Direct Bilirubin Not Reportable 06/07/19 06:13 Neonat Indirect Bili Not Reportable 06/07/19 06:13 AST 23 U/L (14-36) 06/07/19 06:13 ALT 27 U/L (<35) 06/07/19 06:13 Alkaline Phosphatase 98 U/L (38-126) 06/07/19 06:13 Ammonia 36.1 umol/L (9-33) H 06/04/19 22:07 Troponin I 0.023 ng/mL 06/05/19 04:52 NT-Pro-B Natriuret Pep 2950 pg/mL (<450) H 06/04/19 22:07 Total Protein 5.0 g/dL (6.3-8.2) L 06/07/19 06:13 Albumin 2.4 g/dL (3.5-5.0) L 06/07/19 06:13 TSH 0.40 uIU/mL (0.47-4.68) L 06/04/19 22:07 Urine Color YELLOW 06/04/19 16:45 Urine Appearance SLIGHTLY-CLOUDY 06/04/19 16:45 Urine pH 6.0 (5.0-9.0) 06/04/19 16:45 Ur Specific [place] 1.028 06/04/19 16:45 Urine Protein >=500 mg/dL (NEGATIVE) H 06/04/19 16:45 Urine Glucose (UA) NEGATIVE mg/dL (NEGATIVE) 06/04/19 16:45 Urine Ketones NEGATIVE mg/dL (NEGATIVE) 06/04/19 16:45 Urine Blood NEGATIVE (NEGATIVE) 06/04/19 16:45 Urine Nitrite (Reflex) NEGATIVE (NEGATIVE) 06/04/19 16:45 Urine Bilirubin NEGATIVE (NEGATIVE) 06/04/19 16:45 Urine Urobilinogen NEGATIVE mg/dL (<2.0) 06/04/19 16:45 Leukocyte Esterase Rfl NEGATIVE (NEGATIVE) 06/04/19 16:45 Urine RBC (Auto) 9 /HPF 06/04/19 16:45 U Hyaline Cast (Auto) 3 /LPF 06/04/19 16:45 Urine WBC (Reflex) 2 /HPF 06/04/19 16:45 Squamous Epi Cells Auto 1 /HPF 06/04/19 16:45 Urine Mucus (Auto) OCC /LPF 06/04/19 16:45 Urine Ascorbic Acid NEGATIVE (NEGATIVE) 06/04/19 16:45 Influenza A (Rapid) NEGATIVE (NEGATIVE) 06/04/19 19:40 Influenza B (Rapid) NEGATIVE (NEGATIVE) 06/04/19 19:40 06/04/19 06/04/19 06/04/19 15:43 22:07 22:07 Troponin I 0.030 0.021 NT-Pro-B Natriuret Pep 2950 H 06/05/19 04:52 Troponin I 0.023 NT-Pro-B Natriuret Pep Impressions: Chest X-Ray 06/04/19 16:41 IMPRESSION: Lordotic AP portable examination. There are probable small bilateral pleural effusions and associated bibasilar atelectasis or consolidation. Chest/Abdomen CTA 06/04/19 19:42 IMPRESSION: 1. Unfortunately bolus timing significantly limits evaluation for pulmonary embolus. No evidence of a definite large or central pulmonary embolus is noted but otherwise cannot exclude pulmonary emboli on this exam. 2. Otherwise no acute abnormality. Head CT 06/04/19 19:42 IMPRESSION: 1. No acute intracranial hemorrhage. Questionable hypodensity versus artifact within the right frontal white matter. If there is clinical concern for acute stroke, consider MRI brain as a more sensitive evaluation. Head CT 06/04/19 23:30 IMPRESSION: Atrophy and chronic small vessel ischemic changes with no acute intracranial abnormality. Chest X-Ray 06/06/19 08:15 IMPRESSION: Severe emphysematous change with likely trace effusions. No overt pulmonary edema. Chest X-Ray 06/07/19 00:00 IMPRESSION: Severe pulmonary emphysema. No acute cardiopulmonary disease. Plan Plan of Treatment: Completed antibiotics here Prescriptions given for new home inhalers Home health physical therapy Blood pressure medications ordered at discharge Follow-up with PCP Stroke Is this a Stroke Patient?: No Acute Heart Failure - Is this a Heart Failure Patient?: Yes Documentation of LVEF assessment?: Yes LVEF < 40%?: No- if no continue to question #3 a) Discharged on ACEI?: Yes
[2019-06-10 16:36] VITALS: BP 120/63
[2019-06-11] MEDS ORDERED: FUROSEMIDE 20 MG TABLET PO SCH (10:00)
== END 2019-06-10 16:54 | disposition home health service (06) | DRG 291 ==
LOC: ER 16:18 → EH 06-05 03:59 → 3S 06-05 16:37
PROVIDERS: ADMIT Internal Medicine; ATTEND Internal Medicine
DX: I11.0 Hypertensive heart disease with heart failure (principal); J18.9 Pneumonia, unspecified organism; I50.31 Acute diastolic (congestive) heart failure; Z68.1 Body mass index [BMI] 19.9 or less, adult; E44.0 Moderate protein-calorie malnutrition; J43.1 Panlobular emphysema; I16.0 Hypertensive urgency; E87.6 Hypokalemia; E03.9 Hypothyroidism, unspecified; K21.9 Gastro-esophageal reflux disease without esophagitis; E78.5 Hyperlipidemia, unspecified; Z77.22 Contact with and (suspected) exposure to environmental tobacco smoke (acute) (chronic); G47.30 Sleep apnea, unspecified; Z91.14 Patient's other noncompliance with medication regimen
CPT/HCPCS: 36415; 36600; 70450; 71045; 71046; 71275; 80048; 80053; 81001; 82140; 82803; 82962; 83605; 83735; 83880; 84443; 84484; 85025; 85610; 87040; 87804; 93005; 93010; 93306; 94640; 96361; 96365; 96366; 96375; 99285; J0696; J1644; J1940; J3480; J3490; J7040